=== PATIENT | female | born 1955 | race Caucasian/White ===

== ENCOUNTER → 2016-05-17 | Outpatient (CLI) | payer OTHER ==
[~2016-05-17] MED LIST: ALPR-411 PO; ASPI81TA28 PO; BETA0.053 TOP; CRS/10 PO; GABA-112 PO; GLIM2TAB2 PO; LOSA50TA54 PO; LPT40 PO; METO50TA16 PO; NTRGSL/4 UT; OMEP40CA PO; PRAS1TAB6 PO
--- NOTE | 2016-05-17 15:58 | DIAGNOSTIC IMAGING REPORT ---
TWO VIEW CHEST CLINICAL HISTORY: Emphysema. FINDINGS: PA and lateral chest radiographs are compared to study dated 06/18/2015. Correlation is made with chest CT dated 03/18/2015. The PA view is degraded by patient rotation. The cardiomediastinal silhouette is unremarkable. Coronary artery stents are suspected. There is atherosclerotic calcification of the thoracic aorta. Emphysema and chronic interstitial thickening are similar to previous. There is no airspace consolidation, pleural effusion, or pneumothorax. The skeletal structures are osteopenic. The bony thorax appears intact. Mild degenerative change is noted in the thoracic spine. IMPRESSION: Emphysema with no acute cardiopulmonary abnormality. Electronically signed by: iDpak Scott M.D. 05/17/2016 3:55 PM Dictated Date/Time: 05/17/2016 3:54 PM
[2016-05-17 17:09] LABS: BASO % 0.5 %; BASO ABS # 0.07 K/uL (0-0.2); COMPLETE YES; EOS % 2.2 %; HEMATOCRIT 46.4 % (37-47); IG% 0.2 %; LYMPH % 24.5 %; LYMPH ABS # 3.28 K/uL (1.2-3.4); MEAN CORPUSCULAR HEMOGLOBIN 30.6 pg (25-34); MEAN CORPUSCULAR HGB CONC 34.7 g/dl (32-36); MEAN PLATELET VOLUME 12.1 fL (7.4-10.4); NEUT % 68.6 %; PLATELET COUNT 247 K/uL (130-400); RED BLOOD COUNT 5.27 M/uL (4.2-5.4); WHITE BLOOD COUNT 13.38 K/uL (4.8-10.8)
[2016-05-17 17:33] LABS: ALT/SGPT 17 U/L (12-78); BLOOD UREA NITROGEN 23 mg/dl (7-18); BUN/CREATININE RATIO 15.3 (10-20); CARBON DIOXIDE 24 mmol/L (21-32); CHLORIDE 105 mmol/L (98-107); GLUCOSE 111 mg/dl (70-99); POTASSIUM 4.3 mmol/L (3.5-5.1); SODIUM 140 mmol/L (136-145)
[2016-05-17 17:44] LABS: ALB/GLOB RATIO 0.9 (0.9-2); ALKALINE PHOSPHATASE 101 U/L (45-117); AST/SGOT 18 U/L (15-37); THYROID STIMULATING HORMONE 0.777 uIu/ml (0.300-4.500)
[2016-05-18 06:35] LABS: ESTIMATED AVERAGE GLUCOSE 123 mg/dl; HA1C FLAG Normal (Normal)
== END | disposition home or self-care (01) ==
LOC: C.RADBC 15:28
PROVIDERS: ATTEND Internal Medicine Geriatric Medicine
DX: J43.9 Emphysema, unspecified (principal); I25.10 Atherosclerotic heart disease of native coronary artery without angina pectoris; E11.9 Type 2 diabetes mellitus without complications; I10 Essential (primary) hypertension; D72.829 Elevated white blood cell count, unspecified

== ENCOUNTER → 2016-06-05 | Outpatient (CLI) | payer OTHER ==
[2016-06-05 10:16] LABS: URINE APPEARANCE CLOUDY (CLEAR); URINE BILIRUBIN NEG (NEG); URINE COLOR DK YELLOW; URINE EPITHELIAL CELL AUTO >30 /lpf (0-5); URINE NITRITE POS (NEG); URINE SPECIFIC GRAVITY 1.022 (1.000-1.030); UROBILINOGEN NEG (NEG); ZZUR CULT IF INDIC CLEAN CATCH YES
[2016-06-05 10:24] LABS: MANUAL MICROSCOPIC REQUIRED? NO; REVIEW REQ? NO
[2016-06-05 14:46] LABS: URINE PROTIEN/CREAT RATIO 0.2 (0-0.2); URINE TOTAL PROTEIN 64.6 mg/dl (0-11.9)
== END | disposition home or self-care (01) ==
LOC: C.LAB 09:12
PROVIDERS: ATTEND Internal Medicine Nephrology
DX: N17.9 Acute kidney failure, unspecified (principal)

== ENCOUNTER → 2016-06-19 | Outpatient (CLI) | payer OTHER ==
[2016-06-19 11:58] LABS: BLOOD UREA NITROGEN 19 mg/dl (7-18); BUN/CREATININE RATIO 10.8 (10-20); CALCIUM 9.2 mg/dl (8.5-10.1); CARBON DIOXIDE 24 mmol/L (21-32); CHLORIDE 104 mmol/L (98-107); GLUCOSE 165 mg/dl (70-99); MAGNESIUM 2.3 mg/dl (1.8-2.4); PHOSPHORUS 2.6 mg/dl (2.5-4.9); SODIUM 138 mmol/L (136-145)
== END | disposition home or self-care (01) ==
LOC: C.LAB 10:11
PROVIDERS: ATTEND Internal Medicine Nephrology
DX: N17.9 Acute kidney failure, unspecified (principal)

== ENCOUNTER → 2016-06-26 | Outpatient (CLI) | payer OTHER ==
[2016-06-26 17:41] LABS: URINE APPEARANCE CLEAR (CLEAR); URINE BILIRUBIN NEG (NEG); URINE COLOR DK YELLOW; URINE EPITHELIAL CELL AUTO >30 /lpf (0-5); URINE NITRITE NEG (NEG); URINE SPECIFIC GRAVITY 1.021 (1.000-1.030); UROBILINOGEN NEG (NEG); ZZUR CULT IF INDIC CLEAN CATCH NO
[2016-06-26 17:42] LABS: MANUAL MICROSCOPIC REQUIRED? NO; REVIEW REQ? YES
[2016-06-26 17:51] LABS: URINE PROTIEN/CREAT RATIO 0.3 (0-0.2); URINE TOTAL PROTEIN 71.2 mg/dl (0-11.9)
== END | disposition home or self-care (01) ==
LOC: C.LAB1850 16:24
PROVIDERS: ATTEND Internal Medicine Nephrology
DX: N17.9 Acute kidney failure, unspecified (principal)

== ENCOUNTER → 2016-08-09 | Outpatient (CLI) | payer OTHER ==
[2016-08-09 17:31] LABS: BLOOD UREA NITROGEN 21 mg/dl (7-18); BUN/CREATININE RATIO 14.3 (10-20); CALCIUM 9.1 mg/dl (8.5-10.1); CARBON DIOXIDE 25 mmol/L (21-32); CHLORIDE 106 mmol/L (98-107); GLUCOSE 97 mg/dl (70-99); SODIUM 140 mmol/L (136-145)
== END | disposition home or self-care (01) ==
LOC: C.LABBFT 12:18
PROVIDERS: ATTEND Internal Medicine Nephrology
DX: N17.9 Acute kidney failure, unspecified (principal); R27.0 Ataxia, unspecified

== ENCOUNTER → 2016-08-14 | Outpatient (CLI) | payer OTHER ==
--- NOTE | 2016-08-14 14:08 | DIAGNOSTIC IMAGING REPORT ---
Brain MRI WITHOUT CONTRAST HISTORY: Ataxia. TECHNIQUE: Multiplanar multisequence MRI of the brain was performed without the use of contrast. COMPARISON STUDY: None. FINDINGS: There is no mass, hematoma, midline shift, or acute infarct. The paranasal sinuses are clear. The mastoid or cells are clear. The ventricles and sulci demonstrate mild age-related involutional changes. Scattered foci of T2 hyperintensity seen within the periventricular and subcortical white matter are nonspecific but suggestive of mild microvascular ischemic changes. The major vascular flow voids at the skull base are well-maintained. Old lacunar infarct seen within the left cerebellar hemisphere, kendra, thalami, right basal ganglia, and right temporal periventricular white matter. Small focus of susceptibility artifact within the right parietal white matter may be due to old hemorrhagic infarct. No acute hemorrhage identified. IMPRESSION: No acute intracranial abnormality. Scattered foci of T2 hyperintensity seen within the periventricular and subcortical white matter are nonspecific but favor microvascular ischemic change. Old scattered lacunar infarcts as described above. Electronically signed by: Jonathan Escamilla M.D. 08/14/2016 2:06 PM Dictated Date/Time: 08/14/2016 2:00 PM
== END | disposition home or self-care (01) ==
LOC: C.MRIBC 12:41
PROVIDERS: ATTEND Physician Assistant Medical
DX: R27.0 Ataxia, unspecified (principal)

== ENCOUNTER → 2016-10-16 | Outpatient (CLI) | payer OTHER ==
[2016-10-16 15:39] LABS: BASO % 0.3 %; BASO ABS # 0.03 K/uL (0-0.2); COMPLETE YES; EOS % 2.7 %; HEMATOCRIT 42.6 % (37-47); IG% 0.3 %; LYMPH % 27.1 %; LYMPH ABS # 3.13 K/uL (1.2-3.4); MEAN CELL VOLUME 90.1 fL (80-100); MEAN CORPUSCULAR HEMOGLOBIN 30.2 pg (25-34); MEAN CORPUSCULAR HGB CONC 33.6 g/dl (32-36); MEAN PLATELET VOLUME 11.9 fL (7.4-10.4); MONO % 4.3 %; NEUT % 65.3 %; PLATELET COUNT 198 K/uL (130-400); RED BLOOD COUNT 4.73 M/uL (4.2-5.4); WHITE BLOOD COUNT 11.56 K/uL (4.8-10.8)
[2016-10-16 16:01] LABS: ALT/SGPT 17 U/L (12-78); AST/SGOT 9 U/L (15-37); BLOOD UREA NITROGEN 28 mg/dl (7-18); BUN/CREATININE RATIO 15.5 (10-20); CALCIUM 9.1 mg/dl (8.5-10.1); CARBON DIOXIDE 27 mmol/L (21-32); CHLORIDE 110 mmol/L (98-107); GLUCOSE 159 mg/dl (70-99); POTASSIUM 3.8 mmol/L (3.5-5.1); SODIUM 145 mmol/L (136-145)
[2016-10-16 16:12] LABS: ALKALINE PHOSPHATASE 91 U/L (45-117); THYROID STIMULATING HORMONE 0.543 uIu/ml (0.300-4.500)
[2016-10-17 06:33] LABS: ESTIMATED AVERAGE GLUCOSE 117 mg/dl; HA1C FLAG Normal (Normal)
== END | disposition home or self-care (01) ==
LOC: C.LAB1850 14:26
PROVIDERS: ATTEND Internal Medicine Geriatric Medicine
DX: I12.9 Hypertensive chronic kidney disease with stage 1 through stage 4 chronic kidney disease, or unspecified chronic kidney disease (principal); R63.4 Abnormal weight loss; I67.2 Cerebral atherosclerosis; D72.829 Elevated white blood cell count, unspecified; R42 Dizziness and giddiness; N18.3 Chronic kidney disease, stage 3 (moderate); R29.898 Other symptoms and signs involving the musculoskeletal system; E11.40 Type 2 diabetes mellitus with diabetic neuropathy, unspecified

== ENCOUNTER → 2016-10-18 | Outpatient (CLI) | payer OTHER ==
[2016-10-18 18:46] LABS: CHOLESTEROL/HDL RATIO 6.8
[2016-10-23 03:43] LABS: IGA SERUM 375 mg/dL (81-463); TIS TRANS IGA 1 U/mL (<4)
== END | disposition home or self-care (01) ==
LOC: C.LABBFT 11:51
PROVIDERS: ATTEND Internal Medicine Geriatric Medicine
DX: R42 Dizziness and giddiness (principal); R63.4 Abnormal weight loss

== ENCOUNTER → 2016-10-25 | Outpatient (CLI) | payer OTHER ==
--- NOTE | 2016-10-25 14:46 | DIAGNOSTIC IMAGING REPORT ---
MRI OF THE BRAIN WITHOUT IV CONTRAST CLINICAL HISTORY: Right upper extremity weakness of 3 months duration. COMPARISON STUDY: MRI of the brain dated 08/14/2016. TECHNIQUE: MRI of the brain was performed utilizing various T1 and T2-weighted sequences in the axial, sagittal, and coronal planes. IV contrast was not administered due to low GFR. FINDINGS: Brain parenchyma: There is mild patchy subcortical and periventricular microangiopathic disease. This is similar to previous. There is no hemorrhage or mass effect. There are 2 foci of restricted diffusion identified within the left kendra measuring up to 10 mm. This is consistent with acute to subacute lacunar infarcts. No additional foci of restricted diffusion are identified. Additional chronic lacunar infarcts are identified within the right kendra, both cerebellar hemispheres, both thalami, the left internal capsule, and the right caudate head. Cowart-white matter differentiation is preserved. No extra-axial fluid collection is seen. The cerebellar tonsils are normal in configuration. Ventricles, sulci, and cisterns: Prominent secondary to involutional change. Pituitary and sella: Unremarkable. Intracranial vasculature: Normal flow voids are maintained at the skull base. Orbits: The bony orbits are grossly intact. Orbital contents are normal in appearance. Sinuses and mastoids: Clear. Calvarium: Unremarkable. Cervical cord: Partially visualized cervical spinal cord is normal in morphology and signal intensity. IMPRESSION: 1. There are 2 small foci of restricted diffusion identified within the left kendra consistent with acute to subacute lacunar infarcts. 2. No additional foci of acute ischemia are identified. There is no hemorrhage or mass effect. 3. Numerous chronic lacunar infarcts are identified and similar to previous. Electronically signed by: Dipak Scott M.D. 10/25/2016 2:44 PM Dictated Date/Time: 10/25/2016 2:40 PM
== END | disposition home or self-care (01) ==
LOC: C.MRIBC 13:23
PROVIDERS: ATTEND Internal Medicine Geriatric Medicine
DX: R29.898 Other symptoms and signs involving the musculoskeletal system (principal)

== ENCOUNTER → 2016-11-27 | Outpatient (CLI) | payer OTHER ==
[2016-11-27 17:34] LABS: URINE APPEARANCE CLOUDY (CLEAR); URINE BILIRUBIN NEG (NEG); URINE COLOR YELLOW; URINE EPITHELIAL CELL AUTO >30 /lpf (0-5); URINE NITRITE NEG (NEG); URINE PH 6.5 (4.5-7.5); URINE SPECIFIC GRAVITY 1.016 (1.000-1.030); UROBILINOGEN NEG (NEG); ZZUR CULT IF INDIC CLEAN CATCH YES
[2016-11-27 17:48] LABS: MANUAL MICROSCOPIC REQUIRED? NO; REVIEW REQ? NO
[2016-11-27 17:49] LABS: URINE PROTIEN/CREAT RATIO 0.4 (0-0.2); URINE TOTAL PROTEIN 39.9 mg/dl (0-11.9)
[2016-11-27 17:50] LABS: BLOOD UREA NITROGEN 24 mg/dl (7-18); BUN/CREATININE RATIO 14.1 (10-20); CALCIUM 8.9 mg/dl (8.5-10.1); CARBON DIOXIDE 26 mmol/L (21-32); CHLORIDE 108 mmol/L (98-107); GLUCOSE 74 mg/dl (70-99); MAGNESIUM 2.2 mg/dl (1.8-2.4); PHOSPHORUS 2.3 mg/dl (2.5-4.9); SODIUM 141 mmol/L (136-145)
== END | disposition home or self-care (01) ==
LOC: C.LAB1850 15:56
PROVIDERS: ATTEND Internal Medicine Nephrology
DX: N18.3 Chronic kidney disease, stage 3 (moderate) (principal)

== ENCOUNTER 2017-01-06 11:58 | Inpatient (IN) | payer OTHER ==
[~2017-01-06] VITALS: Ht 157.5 cm; Wt 70.2 kg
[~2017-01-06 11:58] MED LIST changes: +KETOROLAC TROMETHAMINE 30 MG/ML VIAL IV STA; -LPT40 PO; +ONDANSETRON INJ 2 MG/ML 2 ML VIAL IV STA; -PRAS1TAB6 PO; +SODIUM CHLORIDE 0.9% 1000ML 1,000 ML IV STA
[2017-01-06] MEDS ORDERED: METOPROLOL TARTRATE 1 MG/ML VIAL IV STA (12:12)
[2017-01-06 12:21] LABS: BASO % 0.3 %; BASO ABS # 0.04 K/uL (0-0.2); COMPLETE YES; EOS % 2.2 %; HEMATOCRIT 44.9 % (37-47); IG% 0.3 %; LYMPH ABS # 2.46 K/uL (1.2-3.4); MEAN CELL VOLUME 92.8 fL (80-100); MEAN CORPUSCULAR HGB CONC 33.4 g/dl (32-36); MEAN PLATELET VOLUME 11.4 fL (7.4-10.4); MONO % 4.5 %; NEUT % 73.7 %; PLATELET COUNT 180 K/uL (130-400); RED BLOOD COUNT 4.84 M/uL (4.2-5.4); WHITE BLOOD COUNT 12.93 K/uL (4.8-10.8)
--- NOTE | 2017-01-06 12:26 | DIAGNOSTIC IMAGING REPORT ---
CHEST ONE VIEW PORTABLE HISTORY: 61 years-old Female Pt c/o diffuse abd pain acute generalized abdominal pain COMPARISON: Chest radiograph 04/16/2017 TECHNIQUE: Portable upright AP view of the chest FINDINGS: Cardiac silhouette is upper limits of normal. There is atherosclerosis of the aorta. No pneumothorax, pleural effusion or focal airspace consolidation. No overt pulmonary edema. Emphysematous changes are suggested. Degenerative changes involve the bilateral shoulders. The bones are grossly intact. IMPRESSION: No acute cardiopulmonary process. The above report was generated using voice recognition software. It may contain grammatical, syntax or spelling errors. Electronically signed by: Kiran Mckeon M.D. 01/06/2017 12:24 PM Dictated Date/Time: 01/06/2017 12:23 PM
[2017-01-06] MEDS ORDERED: OPTIRAY 320 IV PRN (12:30)
--- NOTE | 2017-01-06 12:44 | EMERGENCY ROOM VISIT NOTE ---
History Report prepared by Michele: Kenia Cazares Under the Supervision of: Dr. Wade Escamilla M.D. First contact with patient: 11:58 Stated Complaint: ABDOMINAL PAIN History of Present Illness The patient is a 61 year old female who presents to the Emergency Room with complaints of constant abdominal pain beginning 3 days ago. The patient states that she has a history of heart attacks and has cardiac stents and blockages in the lower extremities. She reports that over the last 3 days she has had intermittent nausea, vomiting, and diarrhea. Source of History: patient Onset: 3 days ago Position: abdomen Timing: constant Associated Symptoms: + nausea, + vomiting, + diarrhea Review of Systems See HPI for pertinent positives & negatives. A total of 10 systems reviewed and were otherwise negative. Past Medical & Surgical Medical Problems: (1) CVA (cerebral vascular accident) (2) CVD (cardiovascular disease) (3) Diabetes mellitus (4) GERD (gastroesophageal reflux disease) (5) HTN (hypertension) (6) Myocardial infarction (7) Pain in both upper arms Surgical Problems: (1) S/P cardiac cath Family History FH: heart attack Social History Smoking Status: Current Every Day Smoker Alcohol Use: none Marital Status: Housing Status: lives with significant other Occupation Status: unemployed Current/Historical Medications Scheduled Alprazolam (Xanax), 0.5 MG PO TID Aspirin (Aspirin Ec), 81 MG PO DAILY Glimepiride (Glimepiride), 1.5 TAB PO DAILY Losartan Potassium (Cozaar), 50 MG PO DAILY Metoprolol Tartrate (Lopressor) (Lopressor), 50 MG PO BID Prasugrel Hcl (Effient), 10 MG PO DAILY Allergies Coded Allergies: No Known Allergies (Verified , 01/06/17) Physical Exam Vital Signs Date Time Temp Pulse Resp B/P (MAP) Pulse Ox O2 Delivery O2 Flow Rate FiO2 01/06/17 14:37 68 20 135/73 98 Room Air 01/06/17 14:17 64 207/75 01/06/17 14:10 98 Room Air 01/06/17 13:26 55 168/84 98 01/06/17 12:22 36.4 78 20 191/73 97 Room Air 01/06/17 12:09 72 Physical Exam GENERAL: Patient is a healthy-appearing well-nourished female HEAD: Normocephalic atraumatic EYES: Ocular movements intact pupils equal and react to light OROPHARYNX mucous membranes are moist no exudates present no erythema or edema present NECK: Supple no nuchal rigidity CHEST: Good equal expansion LUNGS: Clear and equal to auscultation CARDIAC: Normal S1 and S2 ABDOMEN: Soft nontender no guarding BACK: No CVA tenderness EXTREMITIES: No pain upon palpation normal muscle strength in all groups no clubbing cyanosis or edema. Pedal pulses are normal in the lower extremities. NEURO: Patient is following commands and answering questions appropriately. Alert and oriented x3 Cranial Nerves 2-12 grossly intact Medical Decision & Procedures ER Provider Diagnostic Interpretation: Radiology results as stated below per my review and radiologist interpretation: HEAD WITHOUT CONTRAST (CT) FINDINGS: No acute intracranial hemorrhage, midline shift, mass, large territorial ischemia or abnormal extra-axial collection. There is mild bifrontal cerebral atrophy with increased CSF space adjacent to the right frontal lobe suggesting asymmetric atrophy. Scattered areas of focal decreased attenuation involving the right thalamus and caudate nucleus suggest remote lacunar infarctions. Additionally, there are more ill-defined focal areas of low-attenuation within the anteromedial left thalamus on image 14 with focal areas of low attenuation measuring up to 1.3 cm within the central kendra. There are suggested chronic microvascular ischemic changes. The calvarium is intact. The paranasal sinuses, mastoid air cells, and middle ear cavities are clear. IMPRESSION: 1. No acute intracranial hemorrhage, midline shift or territorial ischemia. 2. Atrophy with chronic microvascular ischemic changes. Probable remote lacunar infarctions involve the right caudate nucleus and thalamus. 3. Ill-defined areas of low-attenuation within the anteromedial left thalamus and central kendra suggest age indeterminate lacunar infarctions and could be further evaluated with MRI if clinically indicated. The above report was generated using voice recognition software. It may contain grammatical, syntax or spelling errors. Electronically signed by: Kiran Mckeon M.D. 01/06/2017 1:22 PM Dictated Date/Time: 01/06/2017 1:18 PM CHEST ONE VIEW PORTABLE FINDINGS: Cardiac silhouette is upper limits of normal. There is atherosclerosis of the aorta. No pneumothorax, pleural effusion or focal airspace consolidation. No overt pulmonary edema. Emphysematous changes are suggested. Degenerative changes involve the bilateral shoulders. The bones are grossly intact. IMPRESSION: No acute cardiopulmonary process. The above report was generated using voice recognition software. It may contain grammatical, syntax or spelling errors. Electronically signed by: Kiran Mckeon M.D. 01/06/2017 12:24 PM Dictated Date/Time: 01/06/2017 12:23 PM ABD/PELVIS IV CONTRAST ONLY FINDINGS: Mild dependent bibasal atelectasis. Thin-walled cystic foci are seen involving the lung bases. There is no pneumoperitoneum identified. Coronary arterial disease is present. The liver, gallbladder, spleen, pancreas and right adrenal gland are unremarkable. There is nodular thickening of the left adrenal gland suggesting hyperplasia. Cystic lesions are noted bilaterally involving the kidneys suggesting renal sinus cysts. Minimal vascular calcifications are noted bilaterally with multifocal areas of renal parenchymal thinning. Ureters, urinary bladder, uterus and adnexa are unremarkable. Bilateral fallopian tube occlusion devices are present. There is extensive atherosclerotic plaquing of the abdominal aorta. 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 No bulky retroperitoneal adenopathy. There is no bowel obstruction. No focal bowel wall thickening. No evidence of acute appendicitis. Small fat filled periumbilical hernia is noted, diastases 1.1 cm. Mild body wall edema is noted. Severe facet arthropathy involves the lower lumbar spine. There is 4 mm anterolisthesis L4 on L5, likely on a degenerative basis. IMPRESSION: 1. No acute intra-abdominal or intrapelvic abnormality identified. 2. Bilateral renal sinus cysts. 3. 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 The above report was generated using voice recognition software. It may contain grammatical, syntax or spelling errors. Electronically signed by: Kiran Mckeon M.D. 01/06/2017 1:40 PM Dictated Date/Time: 01/06/2017 1:32 PM Laboratory Results 01/06/17 12:05 Red Blood Count 4.84, Mean Corpuscular Volume 92.8, Mean Corpuscular Hemoglobin 31.0, Mean Corpuscular Hemoglobin Concent 33.4, Mean Platelet Volume 11.4, Neutrophils (%) (Auto) 73.7, Lymphocytes (%) (Auto) 19.0, Monocytes (%) (Auto) 4.5, Eosinophils (%) (Auto) 2.2, Basophils (%) (Auto) 0.3, Neutrophils # (Auto) 9.52, Lymphocytes # (Auto) 2.46, Monocytes # (Auto) 0.58, Eosinophils # (Auto) 0.29, Basophils # (Auto) 0.04 01/06/17 12:05 01/06/17 13:37 Test 01/06/17 11:58 01/06/17 12:05 01/06/17 12:15 01/06/17 12:16 Creatine Kinase MB Ratio (0-3.0) White Blood Count 12.93 K/uL (4.8-10.8) Red Blood Count 4.84 M/uL (4.2-5.4) Hemoglobin 15.0 g/dL (12.0-16.0) Hematocrit 44.9 % (37-47) Mean Corpuscular Volume 92.8 fL (80-100) Mean Corpuscular Hemoglobin 31.0 pg (25-34) Mean Corpuscular Hemoglobin Concent 33.4 g/dl (32-36) Platelet Count 180 K/uL (130-400) Mean Platelet Volume 11.4 fL (7.4-10.4) Neutrophils (%) (Auto) 73.7 % Lymphocytes (%) (Auto) 19.0 % Monocytes (%) (Auto) 4.5 % Eosinophils (%) (Auto) 2.2 % Basophils (%) (Auto) 0.3 % Neutrophils # (Auto) 9.52 K/uL (1.4-6.5) Lymphocytes # (Auto) 2.46 K/uL (1.2-3.4) Monocytes # (Auto) 0.58 K/uL (0.11-0.59) Eosinophils # (Auto) 0.29 K/uL (0-0.5) Basophils # (Auto) 0.04 K/uL (0-0.2) RDW Standard Deviation 48.1 fL (36.4-46.3) RDW Coefficient of Variation 14.1 % (11.5-14.5) Immature Granulocyte % (Auto) 0.3 % Immature Granulocyte # (Auto) 0.04 K/uL (0.00-0.02) Est Creatinine Clear Calc Drug Dose 29.7 ml/min Estimated GFR () 34.6 Estimated GFR (Non- 29.9 BUN/Creatinine Ratio 14.0 (10-20) Calcium Level 9.2 mg/dl (8.5-10.1) Total Bilirubin 0.7 mg/dl (0.2-1) Alanine Aminotransferase (ALT/SGPT) 19 U/L (12-78) Alkaline Phosphatase 116 U/L (45-117) Creatine Kinase MB < 0.5 ng/ml (0.5-3.6) Troponin I < 0.015 ng/ml (0-0.045) Total Protein 7.9 gm/dl (6.4-8.2) Albumin 3.7 gm/dl (3.4-5.0) Lipase 448 U/L (73-393) Urine Color YELLOW Urine Appearance CLEAR (CLEAR) Urine pH 5.0 (4.5-7.5) Urine Specific [place] 1.020 (1.000-1.030) Urine Protein 1+ (NEG) Urine Glucose (UA) TRACE (NEG) Urine Ketones NEG (NEG) Urine Occult Blood TRACE (NEG) Urine Nitrite NEG (NEG) Urine Bilirubin NEG (NEG) Urine Urobilinogen NEG (NEG) Urine Leukocyte Esterase NEG (NEG) Urine WBC (Auto) 1-5 /hpf (0-5) Urine RBC (Auto) 0-4 /hpf (0-4) Urine Hyaline Casts (Auto) 1-5 /lpf (0-5) Urine Epithelial Cells (Auto) >30 /lpf (0-5) Urine Bacteria (Auto) NEG (NEG) Bedside Hemoglobin 15.6 g/dl (12.0-16.0) Bedside Hematocrit 46 % (37-47) Bedside Sodium 140 mEq/L (135-144) Bedside Potassium 4.5 mEq/L (3.3-5.0) Bedside Chloride 107 mEq/L (101-112) Bedside Total CO2 25 mEq/l (24-31) Anion Gap 13.0 mmol/L (16-25) Bedside Blood Urea Nitrogen 37 mg/dl (7-18) Bedside Creatinine 1.7 mg/dl (0.6-1.3) Bedside Glucose (other) 162 mg/dl (70-99) Bedside Ionized Calcium (Shannan) 1.15 mmol/l (1.12-1.32) Test 01/06/17 12:36 01/06/17 13:37 01/06/17 13:44 Prothrombin Time 10.4 SECONDS (9.0-12.0) Prothromb Time International Ratio 1.0 (0.9-1.1) Direct Bilirubin 0.1 mg/dl (0-0.2) Aspartate Amino Transf (AST/SGOT) 11 U/L (15-37) Total Creatine Kinase 41 U/L (26-192) Activated Partial Thromboplast Time 23.0 SECONDS (21.0-31.0) Partial Thromboplastin Ratio 0.9 Labs reviewed by ED physician. Medications Administered Medications (Trade) Dose Ordered Sig/Jakob Route Start Time Stop Time Status Last Admin Dose Admin Sodium Chloride 1,000 ml @ 999 mls/hr Q1H1M STAT IV 01/06/17 11:58 01/06/17 12:58 DC 01/06/17 12:26 999 MLS/HR Ketorolac Tromethamine (Toradol Inj) 30 mg NOW STAT IV 01/06/17 11:58 01/06/17 12:04 DC 01/06/17 11:58 30 MG Ondansetron HCl (Zofran Inj) 4 mg NOW STAT IV 01/06/17 11:58 01/06/17 12:04 DC 01/06/17 11:58 4 MG Metoprolol Tartrate (Lopressor Iv) 15 mg NOW STAT IV 01/06/17 12:12 01/06/17 12:13 DC 01/06/17 14:17 5 MG Aspirin (Aspirin Chew) 81 mg NOW STAT PO 01/06/17 13:33 01/06/17 13:43 DC 01/06/17 13:45 81 MG Lorazepam (Ativan Inj) 1 mg NOW STAT IV 01/06/17 14:03 01/06/17 14:05 DC 01/06/17 14:50 1 MG Sodium Chloride 1,000 ml @ 100 mls/hr Q10H IV 01/06/17 15:04 02/05/17 15:03 01/06/17 16:31 100 MLS/HR ECG Indication: abdominal pain Rate (beats per minute): 63 Rhythm: normal sinus Findings: no acute ischemic change, no ectopy ED Course 1158: Past medical records reviewed. The patient was evaluated in room B7. A complete history and physical examination was performed. 1158: Zofran Inj 4mg IV, Toradol Inj 30mg IV, Sodium Chloride 1000 ml @ 999 mls/ hr IV. 1212: Lopressor IV 15mg IV. 1333: Aspirin 81mg PO. 1345: I discussed the patient's case with Dr. Silver, he has agreed to evaluate the patient for further management and care. 1346: Upon reexamination the patient is doing well. I discussed results and treatment plan with the patient. She verbalizes agreement and understanding. I [place] Silver [place] [facility] [facility] The patient will be evaluated for further management. 0900: Prasugrel 10mg PO. Medical Decision Differential diagnosis: Etiologies such as appendicitis, diverticulitis, PUD, biliary pathology, UTI, pancreatitis, obstruction, mesenteric ischemia, aortic pathology, infections, inflammatory bowel disease, renal colic, as well as others were entertained. This is a 61-year-old female who presents emergency department complaining of severe nausea and vomiting. This is been ongoing for the patient for the past 3 days and she has not been able to hold down her medications. Upon arrival to the emergency department the patient is extremely hypertensive and based on her complaint she was sent for CAT scan of the head along with abdomen and pelvis. I'm concerned that the patient has new strokes on the CAT scan of her head and so discuss the case with the hospitalist service. In the meantime the patient was given normal saline bolus Toradol and Zofran. She was then able to tolerate having aspirin and Effient. Medication Reconcilliation Current Medication List: was personally reviewed by me Blood Pressure Screening Patient's blood pressure: Elevated blood pressure Blood pressure disposition: Referred to PCP Consults Time Called: 1341 Consulting Physician: Dr. Silver [place] [facility] [place] Returned Call: [phone] I discussed the patient's case with Dr. Silver, he has agreed to evaluate the patient for further management and care. Impression Primary Impression: Intractable vomiting Additional Impression: HTN (hypertension) Scribe Attestation The scribe's documentation has been prepared under my direction and personally reviewed by me in its entirety. I confirm that the note above accurately reflects all work, treatment, procedures, and medical decision making performed by me. Departure Information Dispostion Being Evaluated By Hospitalist Referrals Edi Castellanos M.D. (PCP) Problem Qualifiers Primary Impression: Intractable vomiting Vomiting type: unspecified Nausea presence: with nausea Qualified Codes: R11.2 - Nausea with vomiting, unspecified Additional Impression: HTN (hypertension) Hypertension type: unspecified Qualified Codes: I10 - Essential (primary) hypertension
[2017-01-06] MEDS ORDERED: PRAS1TAB6 PO (12:46)
[2017-01-06 12:50] LABS: URINE APPEARANCE CLEAR (CLEAR); URINE BILIRUBIN NEG (NEG); URINE COLOR YELLOW; URINE EPITHELIAL CELL AUTO >30 /lpf (0-5); URINE NITRITE NEG (NEG); UROBILINOGEN NEG (NEG); ZZURINE CULT IF INDIC CATH NO
[2017-01-06 12:51] LABS: ALKALINE PHOSPHATASE 116 U/L (45-117); ALT/SGPT 19 U/L (12-78); BLOOD UREA NITROGEN 25 mg/dl (7-18); CALCIUM 9.2 mg/dl (8.5-10.1); CARBON DIOXIDE 24 mmol/L (21-32); CHLORIDE 109 mmol/L (98-107); GLUCOSE 155 mg/dl (70-99); SODIUM 139 mmol/L (136-145)
[2017-01-06 12:53] LABS: MANUAL MICROSCOPIC REQUIRED? NO; REVIEW REQ? NO
[2017-01-06 12:58] LABS: PROTHROMBIN TIME (PATIENT) 10.4 SECONDS (9.0-12.0)
--- NOTE | 2017-01-06 13:24 | DIAGNOSTIC IMAGING REPORT ---
HEAD WITHOUT CONTRAST (CT) CLINICAL HISTORY: 61 years-old Female with Pt c/o HTN, emesis. Acute headache with hypertension and emesis. TECHNIQUE: Multiple axial CT images of the head were obtained without contrast. A dose lowering technique was utilized adhering to the principles of ALARA. COMPARISON: None. FINDINGS: No acute intracranial hemorrhage, midline shift, mass, large territorial ischemia or abnormal extra-axial collection. There is mild bifrontal cerebral atrophy with increased CSF space adjacent to the right frontal lobe suggesting asymmetric atrophy. Scattered areas of focal decreased attenuation involving the right thalamus and caudate nucleus suggest remote lacunar infarctions. Additionally, there are more ill-defined focal areas of low-attenuation within the anteromedial left thalamus on image 14 with focal areas of low attenuation measuring up to 1.3 cm within the central kendra. There are suggested chronic microvascular ischemic changes. The calvarium is intact. The paranasal sinuses, mastoid air cells, and middle ear cavities are clear. IMPRESSION: 1. No acute intracranial hemorrhage, midline shift or territorial ischemia. 2. Atrophy with chronic microvascular ischemic changes. Probable remote lacunar infarctions involve the right caudate nucleus and thalamus. 3. Ill-defined areas of low-attenuation within the anteromedial left thalamus and central kendra suggest age indeterminate lacunar infarctions and could be further evaluated with MRI if clinically indicated. The above report was generated using voice recognition software. It may contain grammatical, syntax or spelling errors. Electronically signed by: Kirna Mckeon M.D. 01/06/2017 1:22 PM Dictated Date/Time: 01/06/2017 1:18 PM
[2017-01-06] MEDS ORDERED: ASPIRIN 81 MG CHEW PO STA (13:33)
--- NOTE | 2017-01-06 13:41 | DIAGNOSTIC IMAGING REPORT ---
ABD/PELVIS IV CONTRAST ONLY HISTORY: 61 years-old Female Pt c/o diffuse abd pain acute generalized abdominal pain COMPARISON: CTA 03/18/2015 TECHNIQUE: Multiple axial CT images of the abdomen and pelvis were obtained following the intravenous administration of 79 mL Optiray 320. A dose lowering technique was used consistent with the principals of IJEOMA. FINDINGS: Mild dependent bibasal atelectasis. Thin-walled cystic foci are seen involving the lung bases. There is no pneumoperitoneum identified. Coronary arterial disease is present. The liver, gallbladder, spleen, pancreas and right adrenal gland are unremarkable. There is nodular thickening of the left adrenal gland suggesting hyperplasia. Cystic lesions are noted bilaterally involving the kidneys suggesting renal sinus cysts. Minimal vascular calcifications are noted bilaterally with multifocal areas of renal parenchymal thinning. Ureters, urinary bladder, uterus and adnexa are unremarkable. Bilateral fallopian tube occlusion devices are present. There is extensive atherosclerotic plaquing of the abdominal aorta. 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 No bulky retroperitoneal adenopathy. There is no bowel obstruction. No focal bowel wall thickening. No evidence of acute appendicitis. Small fat filled periumbilical hernia is noted, diastases 1.1 cm. Mild body wall edema is noted. Severe facet arthropathy involves the lower lumbar spine. There is 4 mm anterolisthesis L4 on L5, likely on a degenerative basis. IMPRESSION: 1. No acute intra-abdominal or intrapelvic abnormality identified. 2. Bilateral renal sinus cysts. 3. 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 The above report was generated using voice recognition software. It may contain grammatical, syntax or spelling errors. Electronically signed by: Kiran Mckeon M.D. 01/06/2017 1:40 PM Dictated Date/Time: 01/06/2017 1:32 PM
[2017-01-06 14:01] LABS: ISTAT CREATININE 1.7 mg/dl (0.6-1.3); ISTAT HEMOGLOBIN 15.6 g/dl (12.0-16.0); ISTAT IONIZED CALCIUM 1.15 mmol/l (1.12-1.32)
[2017-01-06] MEDS ORDERED: LORAZEPAM 2 MG/ML 1 ML VIAL IV STA (14:03)
[2017-01-06 14:08] LABS: POTASSIUM 4.3 mmol/L (3.5-5.1)
[2017-01-06 14:10] VITALS: O2SAT 98; Ht 157.5 cm; Wt 70.2 kg
[2017-01-06 14:16] LABS: PARTIAL THROMBOPLASTIN RATIO 0.9
[2017-01-06] MEDS ORDERED: PHARMACIST DISCHARGE MED REC CONSULT PRN (15:15)
[2017-01-06] MEDS ORDERED: METOPROLOL TARTRATE 1 MG/ML VIAL IV PRN (15:15)
[2017-01-06] MEDS ORDERED: HydrALAZINE HCL 20 MG/ML VIAL IV. PRN (15:15)
[2017-01-06] MEDS ORDERED: ACETAMINOPHEN 325 MG TAB PO PRN (15:15)
--- NOTE | 2017-01-06 15:56 | DIAGNOSTIC IMAGING REPORT ---
MRA HEAD WITHOUT CONTRAST HISTORY: 61 years-old Female Pt c/o CVA acute hypertension with emesis and headache. COMPARISON: CT head 01/06/2017 TECHNIQUE: MR angiography of the head was obtained without contrast. FINDINGS: The bilateral internal carotid arteries, A1 segments and M1 segments are patent. The anterior communicating artery appears normal. Mild luminal narrowing involves the cavernous portions of the ICAs bilaterally suggesting underlying atherosclerotic vascular disease. The bilateral distal vertebral arteries are patent and form a normal and patent appearing basilar artery. The bilateral P1 segments are patent. There is no high-grade stenosis, proximal branch occlusion or aneurysm identified. IMPRESSION: No high-grade stenosis, proximal branch occlusion or aneurysm. The above report was generated using voice recognition software. It may contain grammatical, syntax or spelling errors. Electronically signed by: Kiran Mckeon M.D. 01/06/2017 3:55 PM Dictated Date/Time: 01/06/2017 3:51 PM
[2017-01-06 16:00] VITALS: O2SAT 98
--- NOTE | 2017-01-06 16:03 | DIAGNOSTIC IMAGING REPORT ---
BRAIN WITHOUT CONTRAST HISTORY: 61 years-old Female Pt c/o CVA acute headache with hypertension and emesis. Follow-up study. COMPARISON: CT head of same day, MRA of the head of same day, MRI brain 10/25/2016 TECHNIQUE: Multiplanar multisequence MRI of the brain was obtained without contrast. FINDINGS: 2 mm focus of increased signal on the diffusion series and increased signal on the ADC map with increased T2/FLAIR signal is seen involving the left putamen as seen on image 14 of the axial series image 13 of the coronal series suggesting subacute infarction. No additional areas of restricted diffusion are identified. No acute intracranial hemorrhage, midline shift or abnormal extra-axial collections. No hydrocephalus or intracranial mass. Atrophy with chronic microvascular ischemic changes and multiple remote basal ganglia and brainstem remote lacunar infarctions are redemonstrated. Atrophy is again most pronounced within the frontal lobes. Mastoid air cells and paranasal sinuses are generally clear. IMPRESSION: 1. Small subacute lacunar infarction involves the left putamen. No large territorial ischemia, significant edema or mass effect. No hemorrhage. 2. Redemonstration of atrophy with chronic microvascular ischemic changes and multiple remote lacunar infarctions. The above report was generated using voice recognition software. It may contain grammatical, syntax or spelling errors. Electronically signed by: Kiran Mckeon M.D. 01/06/2017 4:02 PM Dictated Date/Time: 01/06/2017 3:56 PM
[2017-01-06 16:11] VITALS: BP 149/66; PULSE 72; TEMP 36.7; O2SAT 95
--- NOTE | 2017-01-06 16:25 | DIAGNOSTIC IMAGING REPORT ---
MRA NECK WITHOUT CONTRAST HISTORY: 61 years-old Female Pt c/o CVA acute weakness with dizziness and vomiting. Concern for acute stroke. Decreased GFR. COMPARISON: MRI of the brain of same day. TECHNIQUE: MRA of the neck was obtained with 3-D [id number] sequencing and MIP reformats. FINDINGS: The aortic arch is not imaged on the axial 3-D [id number] images. The imaged bilateral common and internal carotid arteries are widely patent. The vertebral arteries appear to be codominant and patent. The basilar artery is not imaged on the axial 3-D [id number] sequence. The basilar artery does however appear to be normal and patent on the coronal MIP images. No high-grade stenosis, proximal branch occlusion or aneurysm identified. Chronic lacunar infarctions are incidentally noted within the kendra. IMPRESSION: 1. No high-grade stenosis, proximal branch occlusion or aneurysm identified identified. 2. Remote appearing lacunar infarctions of the kendra are incidentally noted. Please refer to MRI of the brain of same day for further details. The above report was generated using voice recognition software. It may contain grammatical, syntax or spelling errors. Electronically signed by: Kiran Mckeon M.D. 01/06/2017 4:24 PM Dictated Date/Time: 01/06/2017 4:19 PM
[2017-01-06] MEDS: SODIUM CHLORIDE 0.9% 1000ML 1,000 ML IV SCH (16:31)
--- NOTE | 2017-01-06 17:25 | History and Physical ---
History & Physical Date & Time of Service: Jan 06, 2017 at 17:06 Chief Complaint: Cva, Cvd Primary Care Physician: Edi Castellanos M.D. History of Present Illness Source: patient, family The patient is a 61-year-old female who presents to the emergency department with complaint of fatigue, nausea, abdominal discomfort, diarrhea over the last 3 days, and family reports she was in addition especially generally weak this morning when they tried to get her up out of bed. She has not had any sick exposures that they are aware of, has not been on any antibiotics, and has not had any recent travels. She has had a history of previous strokes, and unfortunately, she continues to smoke tobacco Past Medical/Surgical History Medical Problems: (1) Diabetes mellitus Status: Chronic (2) GERD (gastroesophageal reflux disease) Status: Chronic (3) HTN (hypertension) Status: Chronic (4) Myocardial infarction Status: Resolved Family History FH: heart attack Social History Smoking Status: Current Every Day Smoker Smokeless Tobacco Use: No Alcohol Use: none Drug Use: none Marital Status: Housing status: lives with family Occupational Status: unemployed Immunizations History of Influenza Vaccine: No History of Tetanus Vaccine?: No History of Pneumococcal: No History of Hepatitis B Vaccine: No Multi-Drug Resistant Organisms History of MDRO: No Allergies Coded Allergies: No Known Allergies (Verified , 01/06/17) Home Medications Scheduled Alprazolam (Xanax), 0.5 MG PO TID Aspirin (Aspirin Ec), 81 MG PO DAILY Glimepiride (Glimepiride), 1.5 TAB PO DAILY Losartan Potassium (Cozaar), 50 MG PO DAILY Metoprolol Tartrate (Lopressor) (Lopressor), 50 MG PO BID Prasugrel Hcl (Effient), 10 MG PO DAILY Review of Systems The patient denies chest pain, palpitations, shortness of breath, cough, lower extremity swelling, vision change, hearing change, sore throat, fevers, chills, sweats, blood in urine or stool, dysuria, urinary frequency or urgency, lightheadedness, dizziness, headache, rash, abnormal bruising or bleeding, focal weakness, numbness or tingling in arms or legs, generalized arthralgias or myalgias, back or neck pain, night sweats, or allergy symptoms. The review of systems is otherwise negative other than for that already noted above, and at least 10 systems have been reviewed. Physical Exam Vital Signs Date Time Temp Pulse Resp B/P (MAP) Pulse Ox O2 Delivery O2 Flow Rate FiO2 01/06/17 16:11 36.7 72 22 149/66 (93) 95 Room Air 01/06/17 15:32 36.4 68 20 135/73 98 01/06/17 14:37 68 20 135/73 98 Room Air 01/06/17 14:17 64 207/75 01/06/17 14:10 98 Room Air 01/06/17 13:26 55 168/84 98 01/06/17 12:22 36.4 78 20 191/73 97 Room Air 01/06/17 12:09 72 The patient is awake, alert and oriented 3, looks chronically ill, normocephalic and atraumatic, lying in bed and in no acute distress. HEENT--PERRL, EOMI, mucous membranes and oropharynx dry. Neck--supple, no JVD or bruits, thyroid normal, trachea midline, no adenopathy. Heart--normal S1 and S2, no extra beats, no murmurs, rubs or gallops. Lungs--clear bilaterally, but overall decreased throughout, no respiratory distress, no accessory muscle use. Abdomen--normal bowel sounds and soft, nontender and nondistended, no hernias or masses, no organomegaly. Extremities--no cyanosis, clubbing or edema. There are good distal pulses b/l. Dermatologic--normal skin turgor, normal color, warm and dry, no abnormal lymph nodes, no rash. Neurologic--cranial nerves II through XII grossly intact. Rheumatologic--normal range of motion, nontender, muscles and joints. Psychiatric--normal affect. Diagnostics Laboratory Results Results Past 24 Hours Test 01/06/17 11:58 01/06/17 12:05 01/06/17 12:15 01/06/17 12:16 Range/Units Creatine Kinase MB Ratio 0-3.0 White Blood Count 12.93 4.8-10.8 K/uL Red Blood Count 4.84 4.2-5.4 M/uL Hemoglobin 15.0 12.0-16.0 g/dL Hematocrit 44.9 37-47 % Mean Corpuscular Volume 92.8 80-100 fL Mean Corpuscular Hemoglobin 31.0 25-34 pg Mean Corpuscular Hemoglobin Concent 33.4 32-36 g/dl Platelet Count 180 130-400 K/uL Mean Platelet Volume 11.4 7.4-10.4 fL Neutrophils (%) (Auto) 73.7 % Lymphocytes (%) (Auto) 19.0 % Monocytes (%) (Auto) 4.5 % Eosinophils (%) (Auto) 2.2 % Basophils (%) (Auto) 0.3 % Neutrophils # (Auto) 9.52 1.4-6.5 K/uL Lymphocytes # (Auto) 2.46 1.2-3.4 K/uL Monocytes # (Auto) 0.58 0.11-0.59 K/uL Eosinophils # (Auto) 0.29 0-0.5 K/uL Basophils # (Auto) 0.04 0-0.2 K/uL RDW Standard Deviation 48.1 36.4-46.3 fL RDW Coefficient of Variation 14.1 11.5-14.5 % Immature Granulocyte % (Auto) 0.3 % Immature Granulocyte # (Auto) 0.04 0.00-0.02 K/uL Sodium Level 139 136-145 mmol/L Potassium Level 3.5-5.1 mmol/L Chloride Level 109 98-107 mmol/L Carbon Dioxide Level 24 21-32 mmol/L Anion Gap 6.0 13.0 16-25 mmol/L Blood Urea Nitrogen 25 7-18 mg/dl Creatinine 1.80 0.60-1.20 mg/dl Est Creatinine Clear Calc Drug Dose 29.7 ml/min Estimated GFR () 34.6 Estimated GFR (Non- 29.9 BUN/Creatinine Ratio 14.0 10-20 Random Glucose 155 70-99 mg/dl Calcium Level 9.2 8.5-10.1 mg/dl Total Bilirubin 0.7 0.2-1 mg/dl Direct Bilirubin 0-0.2 mg/dl Aspartate Amino Transf (AST/SGOT) 15-37 U/L Alanine Aminotransferase (ALT/SGPT) 19 12-78 U/L Alkaline Phosphatase 116 45-117 U/L Total Creatine Kinase 26-192 U/L Creatine Kinase MB < 0.5 0.5-3.6 ng/ml Troponin I < 0.015 0-0.045 ng/ml Total Protein 7.9 6.4-8.2 gm/dl Albumin 3.7 3.4-5.0 gm/dl Lipase 448 73-393 U/L Urine Color YELLOW Urine Appearance CLEAR CLEAR Urine pH 5.0 4.5-7.5 Urine Specific [place] 1.020 1.000-1.030 Urine Protein 1+ NEG Urine Glucose (UA) TRACE NEG Urine Ketones NEG NEG Urine Occult Blood TRACE NEG Urine Nitrite NEG NEG Urine Bilirubin NEG NEG Urine Urobilinogen NEG NEG Urine Leukocyte Esterase NEG NEG Urine WBC (Auto) 1-5 0-5 /hpf Urine RBC (Auto) 0-4 0-4 /hpf Urine Hyaline Casts (Auto) 1-5 0-5 /lpf Urine Epithelial Cells (Auto) >30 0-5 /lpf Urine Bacteria (Auto) NEG NEG Bedside Hemoglobin 15.6 12.0-16.0 g/dl Bedside Hematocrit 46 37-47 % Bedside Sodium 140 135-144 mEq/L Bedside Potassium 4.5 3.3-5.0 mEq/L Bedside Chloride 107 101-112 mEq/L Bedside Total CO2 25 24-31 mEq/l Bedside Blood Urea Nitrogen 37 7-18 mg/dl Bedside Creatinine 1.7 0.6-1.3 mg/dl Bedside Glucose (other) 162 70-99 mg/dl Bedside Ionized Calcium (Shannan) 1.15 1.12-1.32 mmol/l Test 01/06/17 12:36 01/06/17 13:37 01/06/17 13:44 Range/Units Prothrombin Time 10.4 9.0-12.0 SECONDS Prothromb Time International Ratio 1.0 0.9-1.1 Potassium Level 4.3 3.5-5.1 mmol/L Direct Bilirubin 0.1 0-0.2 mg/dl Aspartate Amino Transf (AST/SGOT) 11 15-37 U/L Total Creatine Kinase 41 26-192 U/L Activated Partial Thromboplast Time 23.0 21.0-31.0 SECONDS Partial Thromboplastin Ratio 0.9 Microbiology Results 01/06/17 C.difficile Toxin B Gene (PCR), Ordered Pending 01/06/17 Shiga Toxin Test, Ordered Pending 01/06/17 Stool Culture, Ordered Pending Diagnostic Radiology Patient Name: MATTIE BENJAMIN Unit Number: [id number] Dictated: 01/06/171222 Transcribed: 01/06/171222 [facility] Printed Date/Time: [~ rep prt dt]/[~ rep prt tm] [~ rep ct labl] - [~ rep ct ivnm] [facility] [place] [address] Dictated: 01/06/171222 Transcribed: 01/06/171222 [facility] Printed Date/Time: [~ rep prt dt]/[~ rep prt tm] [~ rep ct labl] - [~ rep ct ivnm] CHEST ONE VIEW PORTABLE HISTORY: 61 years-old Female Pt c/o diffuse abd pain acute generalized abdominal pain COMPARISON: Chest radiograph 04/16/2017 TECHNIQUE: Portable upright AP view of the chest FINDINGS: Cardiac silhouette is upper limits of normal. There is atherosclerosis of the aorta. No pneumothorax, pleural effusion or focal airspace consolidation. No overt pulmonary edema. Emphysematous changes are suggested. Degenerative changes involve the bilateral shoulders. The bones are grossly intact. IMPRESSION: No acute cardiopulmonary process. The above report was generated using voice recognition software. It may contain grammatical, syntax or spelling errors. Electronically signed by: Kiran Mckeon M.D. 01/06/2017 12:24 PM Dictated Date/Time: 01/06/2017 12:23 PM The status of this report is Signed. Draft = Not yet reviewed or approved by Radiologist. Signed = Reviewed and approved by Radiologist. <AttendingPhy></AttendingPhy> <FamilyPhy>Edi Castellanos M.D.</FamilyPhy> < PrimaryPhy>Edi Castellanos M.D.</PrimaryPhy> <UnitNumber>[id number]</UnitNumber > <VisitNumber>[id number]</VisitNumber> <PatientName>MATTIE BENJAMIN</ PatientName> <DateOfBirth>1955</DateOfBirth> <Location>[facility]</Location> < ServiceDate>01/06/17</ServiceDate> <MNE>ESINDI</MNE> <OrderingPhy>Wade Escamilla MD</OrderingPhy> <OrderingPhyMNE>f rep ord dr mne</OrderingPhyMNE> < DictatingPhyMNE>f rep dict dr bentley</DictatingPhyMNE> <CCListMNE>f rep ct mne</ CCListMNE> <AdmittingPhyMNE>f pt admit dr bentley</AdmittingPhyMNE> <AttendingPhyMNE >f pt attend dr bentley</AttendingPhyMNE> <ConsultingPhyMNE>f pt consult dr bentley</ConsultingPhyMNE> <FamilyPhyMNE>f pt fam dr bentley</FamilyPhyMNE> <OtherPhyMNE>f pt other dr bentley</OtherPhyMNE> < PrimaryPhyMNE>f pt prim care dr bentley</PrimaryPhyMNE> <ReferringPhyMNE>f pt referring dr bentley</ReferringPhyMNE> Patient Name: MATTIE BENJAMIN Unit Number: [id number] Dictated: 01/06/171331 Transcribed: 01/06/171331 [facility] Printed Date/Time: [~ rep prt dt]/[~ rep prt tm] [~ rep ct labl] - [~ rep ct ivnm] [facility] [place] [address] Dictated: 01/06/171331 Transcribed: 01/06/171331 JR Printed Date/Time: [~ rep prt dt]/[~ rep prt tm] [~ rep ct labl] - [~ rep ct ivnm] [~ rep ct add3]] ABD/PELVIS IV CONTRAST ONLY HISTORY: 61 years-old Female Pt c/o diffuse abd pain acute generalized abdominal pain COMPARISON: CTA 03/18/2015 TECHNIQUE: Multiple axial CT images of the abdomen and pelvis were obtained following the intravenous administration of 79 mL Optiray 320. A dose lowering technique was used consistent with the principals of IJEOMA. FINDINGS: Mild dependent bibasal atelectasis. Thin-walled cystic foci are seen involving the lung bases. There is no pneumoperitoneum identified. Coronary arterial disease is present. The liver, gallbladder, spleen, pancreas and right adrenal gland are unremarkable. There is nodular thickening of the left adrenal gland suggesting hyperplasia. Cystic lesions are noted bilaterally involving the kidneys suggesting renal sinus cysts. Minimal vascular calcifications are noted bilaterally with multifocal areas of renal parenchymal thinning. Ureters, urinary bladder, uterus and adnexa are unremarkable. Bilateral fallopian tube occlusion devices are present. There is extensive atherosclerotic plaquing of the abdominal aorta. 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 No bulky retroperitoneal adenopathy. There is no bowel obstruction. No focal bowel wall thickening. No evidence of acute appendicitis. Small fat filled periumbilical hernia is noted, diastases 1.1 cm. Mild body wall edema is noted. Severe facet arthropathy involves the lower lumbar spine. There is 4 mm anterolisthesis L4 on L5, likely on a degenerative basis. IMPRESSION: 1. No acute intra-abdominal or intrapelvic abnormality identified. 2. Bilateral renal sinus cysts. 3. 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 The above report was generated using voice recognition software. It may contain grammatical, syntax or spelling errors. Electronically signed by: Kiran Mckeon M.D. 01/06/2017 1:40 PM Dictated Date/Time: 01/06/2017 1:32 PM The status of this report is Signed. Draft = Not yet reviewed or approved by Radiologist. Signed = Reviewed and approved by Radiologist. <AttendingPhy></AttendingPhy> <FamilyPhy>Edi Castellanos M.D.</FamilyPhy> < PrimaryPhy>Edi Castellanos M.D.</PrimaryPhy> <UnitNumber>[id number]</UnitNumber > <VisitNumber>[id number]</VisitNumber> <PatientName>MATTIE BENJAMIN</ PatientName> <DateOfBirth>1955</DateOfBirth> <Location>[facility]</Location> < ServiceDate>01/06/17</ServiceDate> <MNE>ESINDI</MNE> <OrderingPhy>Wade Escamilla MD</OrderingPhy> <OrderingPhyMNE>f rep ord dr bentley</OrderingPhyMNE> < DictatingPhyMNE>f rep dict dr bentley</DictatingPhyMNE> <CCListMNE>f rep ct mne</ CCListMNE> <AdmittingPhyMNE>f pt admit dr bentley</AdmittingPhyMNE> <AttendingPhyMNE >f pt attend dr bentley</AttendingPhyMNE> <ConsultingPhyMNE>f pt consult dr bentley</ConsultingPhyMNE> <FamilyPhyMNE>f pt fam dr bentley</FamilyPhyMNE> <OtherPhyMNE>f pt other dr bentley</OtherPhyMNE> < PrimaryPhyMNE>f pt prim care dr bentley</PrimaryPhyMNE> <ReferringPhyMNE>f pt referring dr bentley</ReferringPhyMNE> Patient Name: MATTIE BENJAMIN Unit Number: [id number] Dictated: 01/06/171317 Transcribed: 01/06/171317 [facility] Printed Date/Time: [~ rep prt dt]/[~ rep prt tm] [~ rep ct labl] - [~ rep ct ivnm] [facility] [place] [address] Dictated: 01/06/171317 Transcribed: 01/06/171317 [facility] Printed Date/Time: [~ rep prt dt]/[~ rep prt tm] [~ rep ct labl] - [~ rep ct ivnm] [~ rep ct add3]] HEAD WITHOUT CONTRAST (CT) CLINICAL HISTORY: 61 years-old Female with Pt c/o HTN, emesis. Acute headache with hypertension and emesis. TECHNIQUE: Multiple axial CT images of the head were obtained without contrast. A dose lowering technique was utilized adhering to the principles of ALARA. COMPARISON: None. FINDINGS: No acute intracranial hemorrhage, midline shift, mass, large territorial ischemia or abnormal extra-axial collection. There is mild bifrontal cerebral atrophy with increased CSF space adjacent to the right frontal lobe suggesting asymmetric atrophy. Scattered areas of focal decreased attenuation involving the right thalamus and caudate nucleus suggest remote lacunar infarctions. Additionally, there are more ill-defined focal areas of low-attenuation within the anteromedial left thalamus on image 14 with focal areas of low attenuation measuring up to 1.3 cm within the central kendra. There are suggested chronic microvascular ischemic changes. The calvarium is intact. The paranasal sinuses, mastoid air cells, and middle ear cavities are clear. IMPRESSION: 1. No acute intracranial hemorrhage, midline shift or territorial ischemia. 2. Atrophy with chronic microvascular ischemic changes. Probable remote lacunar infarctions involve the right caudate nucleus and thalamus. 3. Ill-defined areas of low-attenuation within the anteromedial left thalamus and central kendra suggest age indeterminate lacunar infarctions and could be further evaluated with MRI if clinically indicated. The above report was generated using voice recognition software. It may contain grammatical, syntax or spelling errors. Electronically signed by: Kiran Mckeon M.D. 01/06/2017 1:22 PM Dictated Date/Time: 01/06/2017 1:18 PM The status of this report is Signed. Draft = Not yet reviewed or approved by Radiologist. Signed = Reviewed and approved by Radiologist. <AttendingPhy></AttendingPhy> <FamilyPhy>Edi Castellanos M.D.</FamilyPhy> < PrimaryPhy>Edi Castellanos M.D.</PrimaryPhy> <UnitNumber>[id number]</UnitNumber > <VisitNumber>[id number]</VisitNumber> <PatientName>MATTIE BENJAMIN</ PatientName> <DateOfBirth>1955</DateOfBirth> <Location>[facility]</Location> < ServiceDate>01/06/17</ServiceDate> <MNE>ESINDI</MNE> <OrderingPhy>Wade Escamilla MD</OrderingPhy> <OrderingPhyMNE>f rep ord dr bentley</OrderingPhyMNE> < DictatingPhyMNE>f rep dict dr bentley</DictatingPhyMNE> <CCListMNE>f rep ct sheree</ CCListMNE> <AdmittingPhyMNE>f pt admit dr bentley</AdmittingPhyMNE> <AttendingPhyMNE >f pt attend dr bentley</AttendingPhyMNE> <ConsultingPhyMNE>f pt consult dr bentley</ConsultingPhyMNE> <FamilyPhyMNE>f pt fam dr bentley</FamilyPhyMNE> <OtherPhyMNE>f pt other dr bentley</OtherPhyMNE> < PrimaryPhyMNE>f pt prim care dr bentley</PrimaryPhyMNE> <ReferringPhyMNE>f pt referring dr bentley</ReferringPhyMNE> Patient Name: MATTIE BENJAMIN Unit Number: [id number] Dictated: 01/06/171550 Transcribed: 01/06/171550 [facility] Printed Date/Time: [~ rep prt dt]/[~ rep prt tm] [~ rep ct labl] - [~ rep ct ivnm] [facility] Radiology Department [place], [place] [id number] Dictated: 01/06/171550 Transcribed: 01/06/171550 [facility] Printed Date/Time: [~ rep prt dt]/[~ rep prt tm] [~ rep ct labl] - [~ rep ct ivnm] [~ rep ct add3]] MRA HEAD WITHOUT CONTRAST HISTORY: 61 years-old Female Pt c/o CVA acute hypertension with emesis and headache. COMPARISON: CT head 01/06/2017 TECHNIQUE: MR angiography of the head was obtained without contrast. FINDINGS: The bilateral internal carotid arteries, A1 segments and M1 segments are patent. The anterior communicating artery appears normal. Mild luminal narrowing involves the cavernous portions of the ICAs bilaterally suggesting underlying atherosclerotic vascular disease. The bilateral distal vertebral arteries are patent and form a normal and patent appearing basilar artery. The bilateral P1 segments are patent. There is no high-grade stenosis, proximal branch occlusion or aneurysm identified. IMPRESSION: No high-grade stenosis, proximal branch occlusion or aneurysm. The above report was generated using voice recognition software. It may contain grammatical, syntax or spelling errors. Electronically signed by: Kiran Mckeon M.D. 01/06/2017 3:55 PM Dictated Date/Time: 01/06/2017 3:51 PM The status of this report is Signed. Draft = Not yet reviewed or approved by Radiologist. Signed = Reviewed and approved by Radiologist. <AttendingPhy>Selvin Silver M.D.</AttendingPhy> <FamilyPhy>Edi Castellanos M.D.</FamilyPhy> <PrimaryPhy>Edi Castellanos M.D.</PrimaryPhy> <UnitNumber> [id number]</UnitNumber> <VisitNumber>[id number]</VisitNumber> <PatientName> MATTIE BENJAMIN</PatientName> <DateOfBirth>1955</DateOfBirth> < Location>[facility]</Location> <ServiceDate>01/06/17</ServiceDate> <MNE>ESINDI</MNE> < OrderingPhy>Wade Escamilla MD</OrderingPhy> <OrderingPhyMNE>f rep ord dr bentley< /OrderingPhyMNE> <DictatingPhyMNE>f rep dict dr bentley</DictatingPhyMNE> <CCListMNE >f rep ct mne</CCListMNE> <AdmittingPhyMNE>f pt admit dr bentley</AdmittingPhyMNE> < AttendingPhyMNE>f pt attend dr bentley</AttendingPhyMNE> <ConsultingPhyMNE>f pt consult dr bentley</ConsultingPhyMNE> <FamilyPhyMNE>f pt fam dr bentley</FamilyPhyMNE> <OtherPhyMNE>f pt other dr bentley</OtherPhyMNE> < PrimaryPhyMNE>f pt prim care dr bentley</PrimaryPhyMNE> <ReferringPhyMNE>f pt referring dr bentley</ReferringPhyMNE> Patient Name: MATTIE BENJAMIN Unit Number: [id number] Dictated: 01/06/171618 Transcribed: 01/06/171618 [facility] Printed Date/Time: [~ rep prt dt]/[~ rep prt tm] [~ rep ct labl] - [~ rep ct ivnm] [facility] [place]iology [place] [address] Dictated: 01/06/171618 Transcribed: 01/06/171618 [facility] Printed Date/Time: [~ rep prt dt]/[~ rep prt tm] [~ rep ct labl] - [~ rep ct ivnm] [~ rep ct add3]] MRA NECK WITHOUT CONTRAST HISTORY: 61 years-old Female Pt c/o CVA acute weakness with dizziness and vomiting. Concern for acute stroke. Decreased GFR. COMPARISON: MRI of the brain of same day. TECHNIQUE: MRA of the neck was obtained with 3-D skva-lq-shnfxl sequencing and MIP reformats. FINDINGS: The aortic arch is not imaged on the axial 3-D pblv-ol-lajxrj images. The imaged bilateral common and internal carotid arteries are widely patent. The vertebral arteries appear to be codominant and patent. The basilar artery is not imaged on the axial 3-D akhg-pa-cfoyde sequence. The basilar artery does however appear to be normal and patent on the coronal MIP images. No high-grade stenosis, proximal branch occlusion or aneurysm identified. Chronic lacunar infarctions are incidentally noted within the kendra. IMPRESSION: 1. No high-grade stenosis, proximal branch occlusion or aneurysm identified identified. 2. Remote appearing lacunar infarctions of the kendra are incidentally noted. Please refer to MRI of the brain of same day for further details. The above report was generated using voice recognition software. It may contain grammatical, syntax or spelling errors. Electronically signed by: Kiran Mckeon M.D. 01/06/2017 4:24 PM Dictated Date/Time: 01/06/2017 4:19 PM The status of this report is Signed. Draft = Not yet reviewed or approved by Radiologist. Signed = Reviewed and approved by Radiologist. <AttendingPhy>Selvin Silver M.D.</AttendingPhy> <FamilyPhy>Edi Castellanos M.D.</FamilyPhy> <PrimaryPhy>Edi Castellanos M.D.</PrimaryPhy> <UnitNumber> [id number]</UnitNumber> <VisitNumber>[id number]</VisitNumber> <PatientName> MATTIE BENJAMIN</PatientName> <DateOfBirth>1955</DateOfBirth> < Location>[facility]</Location> <ServiceDate>01/06/17</ServiceDate> <MNE>ESINDI</MNE> < OrderingPhy>Wade Escamilla MD</OrderingPhy> <OrderingPhyMNE>f rep ord dr bentley< /OrderingPhyMNE> <DictatingPhyMNE>f rep dict dr bentley</DictatingPhyMNE> <CCListMNE >f rep ct mne</CCListMNE> <AdmittingPhyMNE>f pt admit dr bentley</AdmittingPhyMNE> < AttendingPhyMNE>f pt attend dr bentley</AttendingPhyMNE> <ConsultingPhyMNE>f pt consult dr bentley</ConsultingPhyMNE> <FamilyPhyMNE>f pt fam dr bentley</FamilyPhyMNE> <OtherPhyMNE>f pt other dr bentley</OtherPhyMNE> < PrimaryPhyMNE>f pt prim care dr bentley</PrimaryPhyMNE> <ReferringPhyMNE>f pt referring dr bentley</ReferringPhyMNE> Patient Name: MATTIE BENJAMIN Unit Number: [id number] Dictated: 01/06/171555 Transcribed: 01/06/171555 [facility] Printed Date/Time: [~ rep prt dt]/[~ rep prt tm] [~ rep ct labl] - [~ rep ct ivnm] [facility] Radiology Department [place], [place] [id number] Dictated: 01/06/171555 Transcribed: 01/06/171555 [facility] Printed Date/Time: [~ rep prt dt]/[~ rep prt tm] [~ rep ct labl] - [~ rep ct ivnm] BRAIN WITHOUT CONTRAST HISTORY: 61 years-old Female Pt c/o CVA acute headache with hypertension and emesis. Follow-up study. COMPARISON: CT head of same day, MRA of the head of same day, MRI brain 10/25/2016 TECHNIQUE: Multiplanar multisequence MRI of the brain was obtained without contrast. FINDINGS: 2 mm focus of increased signal on the diffusion series and increased signal on the ADC map with increased T2/FLAIR signal is seen involving the left putamen as seen on image 14 of the axial series image 13 of the coronal series suggesting subacute infarction. No additional areas of restricted diffusion are identified. No acute intracranial hemorrhage, midline shift or abnormal extra-axial collections. No hydrocephalus or intracranial mass. Atrophy with chronic microvascular ischemic changes and multiple remote basal ganglia and brainstem remote lacunar infarctions are redemonstrated. Atrophy is again most pronounced within the frontal lobes. Mastoid air cells and paranasal sinuses are generally clear. IMPRESSION: 1. Small subacute lacunar infarction involves the left putamen. No large territorial ischemia, significant edema or mass effect. No hemorrhage. 2. Redemonstration of atrophy with chronic microvascular ischemic changes and multiple remote lacunar infarctions. The above report was generated using voice recognition software. It may contain grammatical, syntax or spelling errors. Electronically signed by: Kiran Mckeon M.D. 01/06/2017 4:02 PM Dictated Date/Time: 01/06/2017 3:56 PM The status of this report is Signed. Draft = Not yet reviewed or approved by Radiologist. Signed = Reviewed and approved by Radiologist. <AttendingPhy>Selvin Silver M.D.</AttendingPhy> <FamilyPhy>Edi Castellanos M.D.</FamilyPhy> <PrimaryPhy>Edi Castellanos M.D.</PrimaryPhy> <UnitNumber> [id number]</UnitNumber> <VisitNumber>[id number]</VisitNumber> <PatientName> MATTIE BENJAMIN</PatientName> <DateOfBirth>1955</DateOfBirth> < Location>[facility]</Location> <ServiceDate>01/06/17</ServiceDate> <MNE>ESINDI</MNE> < OrderingPhy>Wade Escamilla MD</OrderingPhy> <OrderingPhyMNE>f rep ord dr bentley< /OrderingPhyMNE> <DictatingPhyMNE>f rep dict dr bentley</DictatingPhyMNE> <CCListMNE >f rep ct she[facility]</CCListMNE> <AdmittingPhyMNE>f pt admit dr bentley</AdmittingPhyMNE> < AttendingPhyMNE>f pt attend dr bentley</AttendingPhyMNE> <ConsultingPhyMNE>f pt consult dr bentley</ConsultingPhyMNE> <FamilyPhyMNE>f pt fam dr bentley</FamilyPhyMNE> <OtherPhyMNE>f pt other dr bentley</OtherPhyMNE> < PrimaryPhyMNE>f pt prim care dr bentley</PrimaryPhyMNE> <ReferringPhyMNE>f pt referring dr bentley</ReferringPhyMNE> EKG EKG shows normal sinus rhythm at 63 bpm, no acute ST-T changes, and no change compared to 06/19/2015. Impression Assessment and Plan Subacute CVA of left putamen/history of [place]/hypertension-- CT of the head demonstrated old strokes in the right caudate and thalamus, and questioned new strokes in the left thalamus and central kendra. MRI of the brain confirmed a subacute left putamen CVA, and reconfirmed old strokes. Continue aspirin 81 mg by mouth daily. Continue Effient 10 mg by mouth daily. Continue metoprolol tartrate 50 mg by mouth twice a day, and losartan 50 mg by mouth daily. Consults neurology/psychiatric social worker supervisor/PT/OT. Allow for permissive hypertension, with when necessary Lopressor/hydralazine for systolic blood pressure greater than 180. Diabetes mellitus--hold glimepiride. Place on Accu-Cheks before meals and at bedtime with NovoLog coverage per scale. Anxiety--continue alprazolam 0.5 mg by mouth 3 times a day. Level of Care Telemetry Advanced Directives Existing Advance Directive: No Existing Living Will: Yes Existing Power of Seo Professional: Yes Resuscitation Status FULL RESUSCITATION VTE Prophylaxis VTE Risk Assessment Done? Y/N: Yes Risk Level: High Social Service Consult None Apply
[2017-01-06] MEDS: ALPRAZOLAM 0.5 MG TAB PO SCH (19:54)
[2017-01-06] MEDS: METOPROLOL TARTRATE 50 MG TAB PO SCH (19:54)
[2017-01-06 20:21] VITALS: BP 146/75; PULSE 72; TEMP 36.9; O2SAT 97
[2017-01-06] MEDS ORDERED: ALPRAZOLAM 0.5 MG TAB PO SCH (21:00)
[2017-01-07] VITALS (9 sets, daily range): BP systolic 130–195; BP diastolic 71–82; PULSE 47–65; TEMP 36.5–37; O2SAT 93–99
[2017-01-07] MEDS: SODIUM CHLORIDE 0.9% 1000ML 1,000 ML IV SCH ×3 (01:36→20:19)
[2017-01-07 06:23] LABS: BASO % 0.3 %; BASO ABS # 0.03 K/uL (0-0.2); COMPLETE YES; EOS % 2.6 %; HEMATOCRIT 36.3 % (37-47); IG% 0.2 %; LYMPH % 30.7 %; LYMPH ABS # 2.94 K/uL (1.2-3.4); MEAN CELL VOLUME 93.1 fL (80-100); MEAN CORPUSCULAR HEMOGLOBIN 30.3 pg (25-34); MEAN CORPUSCULAR HGB CONC 32.5 g/dl (32-36); MEAN PLATELET VOLUME 10.9 fL (7.4-10.4); MONO % 4.5 %; NEUT % 61.7 %; PLATELET COUNT 150 K/uL (130-400); WHITE BLOOD COUNT 9.58 K/uL (4.8-10.8)
[2017-01-07 07:05] LABS: BLOOD UREA NITROGEN 25 mg/dl (7-18); BUN/CREATININE RATIO 14.9 (10-20); CALCIUM 8.8 mg/dl (8.5-10.1); CARBON DIOXIDE 25 mmol/L (21-32); CHLORIDE 111 mmol/L (98-107); CHOLESTEROL 206 mg/dl (0-200); GLUCOSE 99 mg/dl (70-99); POTASSIUM 4.1 mmol/L (3.5-5.1); SODIUM 143 mmol/L (136-145); TRIGLYCERIDES 220 mg/dl (0-150); VERY LOW DENSITY LIPOPROT CALC 44 mg/dl
[2017-01-07 07:10] LABS: CHOLESTEROL/HDL RATIO 7.6; HDL CHOLESTEROL 27 mg/dl; LDL CHOLESTEROL CALCULATED 135 mg/dl
[2017-01-07] MEDS: ATORVASTATIN 40 MG TAB PO SCH (08:13)
[2017-01-07] MEDS: ASPIRIN 81 MG ECTAB PO SCH (08:13)
[2017-01-07] MEDS: PRASugrel TAB 10 MG TAB PO SCH (08:13)
[2017-01-07] MEDS: METOPROLOL TARTRATE 50 MG TAB PO SCH ×2 (08:13→20:19)
[2017-01-07] MEDS: ALPRAZOLAM 0.5 MG TAB PO SCH ×3 (08:13→20:27)
[2017-01-07] MEDS: LOSARTAN POTASSIUM 50 MG TAB PO SCH (08:13)
--- NOTE | 2017-01-07 08:51 | Progress Note ---
Subjective Date of Service: Jan 07, 2017. Subjective Pt evaluation today including: conversation w/ patient, physical exam, chart review, lab review, review of studies, conversation w/ showroom consultant, review of inpatient medication list Up and walk in bedside, reports generalized weakness, hoarse voice is not new , deny fever and chill, deny weakness or tingling and numbness, Problem List Medical Problems: (1) Apical myocardial infarction Status: Acute (2) Chest pain Status: Acute (3) HTN (hypertension) Status: Chronic (4) Intractable vomiting Status: Acute Review of Systems Constitutional: + fatigue, No fever, No chills, No sweats, No weight loss, No problem reported Eyes: No worsening of vision, No eye pain, No redness, No discharge, No diplopia ENT: + see HPI, No hearing loss, No unusual epistaxis, No nasal symptoms, No sore throat, No tinnitus, No dental problems, No trouble swallowing Respiratory: + cough, No sputum, No wheezing, No shortness of breath, No dyspnea on exertion, No dyspnea at rest, No hemoptysis Cardiac: No chest pain, No orthopnea, No PND, No edema, No claudication, No palpitations Abdomen: No pain, No nausea, No vomiting, No diarrhea, No constipation Musculoskeletal: No joint pain, No muscle pain, No swelling, No calf pain Female : No dysuria, No urinary frequency, No hematuria, No incontinence, No abnormal vaginal bleeding, No vaginal discharge Neurologic: No memory loss, No paralysis, No weakness, No numbness/tingling, No vertigo, No balance problems Psychiatric: No depression symptoms, No anhedonism, No anxiety, No insomnia, No substance abuse Heme: No abnormal bleeding/bruising, No clotting problems, No swollen lymph nodes, No night sweats Endo: No fatigue, No excessive thirst, No excessive urination Skin: No rash, No itch, No new/changing skin lesions, No color change, No bleeding Objective Vital Signs Date Time Temp Pulse Resp B/P (MAP) Pulse Ox O2 Delivery O2 Flow Rate FiO2 01/07/17 07:47 37.0 61 20 179/82 (114) 93 Room Air 01/07/17 04:00 Room Air 01/07/17 04:00 36.5 57 18 158/71 (100) 96 Room Air 01/07/17 00:00 36.6 52 18 130/75 (93) 96 Room Air 01/06/17 23:59 Room Air 01/06/17 20:21 36.9 72 22 146/75 (98) 97 Room Air 01/06/17 20:00 Room Air 01/06/17 16:11 36.7 72 22 149/66 (93) 95 Room Air 01/06/17 16:00 98 Room Air 01/06/17 15:32 36.4 68 20 135/73 98 01/06/17 14:37 68 20 135/73 98 Room Air 01/06/17 14:17 64 207/75 01/06/17 14:10 98 Room Air 01/06/17 13:26 55 168/84 98 01/06/17 12:22 36.4 78 20 191/73 97 Room Air 01/06/17 12:09 72 Physical Exam General Appearance: WD/WN, no apparent distress, + thin, + pertinent finding ( looks much older than her age) Eyes: normal inspection, PERRL, EOMI, sclerae normal ENT: normal ENT inspection, hearing grossly normal, pharynx normal Neck: supple, no adenopathy, thyroid normal, no JVD, no carotid bruits, trachea midline, + pertinent finding (obvious hoarse voice) Respiratory/Chest: chest non-tender, lungs clear, normal breath sounds, no respiratory distress, no accessory muscle use, + decreased breath sounds ( significant decreased) Cardiovascular: regular rate, rhythm, no edema, no gallop, no JVD, no murmur Abdomen: normal bowel sounds, non tender, soft, no organomegaly, no pulsatile mass Extremities: normal range of motion, non-tender, normal inspection, no pedal edema, no calf tenderness, normal capillary refill, pelvis stable Neurologic/Psychiatric: pin sticker II-XII nml as tested, no motor/sensory deficits, alert, normal mood/affect, oriented x 3, + pertinent finding (NIH stroke scale is 0) Skin: normal color, warm/dry, no rash Lymphatic: no adenopathy Laboratory Results Last 24 Hours Test 01/06/17 11:58 01/06/17 12:05 01/06/17 12:15 01/06/17 12:16 Creatine Kinase MB Ratio White Blood Count 12.93 K/uL Red Blood Count 4.84 M/uL Hemoglobin 15.0 g/dL Hematocrit 44.9 % Mean Corpuscular Volume 92.8 fL Mean Corpuscular Hemoglobin 31.0 pg Mean Corpuscular Hemoglobin Concent 33.4 g/dl Platelet Count 180 K/uL Mean Platelet Volume 11.4 fL Neutrophils (%) (Auto) 73.7 % Lymphocytes (%) (Auto) 19.0 % Monocytes (%) (Auto) 4.5 % Eosinophils (%) (Auto) 2.2 % Basophils (%) (Auto) 0.3 % Neutrophils # (Auto) 9.52 K/uL Lymphocytes # (Auto) 2.46 K/uL Monocytes # (Auto) 0.58 K/uL Eosinophils # (Auto) 0.29 K/uL Basophils # (Auto) 0.04 K/uL RDW Standard Deviation 48.1 fL RDW Coefficient of Variation 14.1 % Immature Granulocyte % (Auto) 0.3 % Immature Granulocyte # (Auto) 0.04 K/uL Sodium Level 139 mmol/L Potassium Level mmol/L Chloride Level 109 mmol/L Carbon Dioxide Level 24 mmol/L Anion Gap 6.0 mmol/L 13.0 mmol/L Blood Urea Nitrogen 25 mg/dl Creatinine 1.80 mg/dl Est Creatinine Clear Calc Drug Dose 29.7 ml/min Estimated GFR () 34.6 Estimated GFR (Non- 29.9 BUN/Creatinine Ratio 14.0 Random Glucose 155 mg/dl Calcium Level 9.2 mg/dl Total Bilirubin 0.7 mg/dl Direct Bilirubin mg/dl Aspartate Amino Transf (AST/SGOT) U/L Alanine Aminotransferase (ALT/SGPT) 19 U/L Alkaline Phosphatase 116 U/L Total Creatine Kinase U/L Creatine Kinase MB < 0.5 ng/ml Troponin I < 0.015 ng/ml Total Protein 7.9 gm/dl Albumin 3.7 gm/dl Lipase 448 U/L Urine Color YELLOW Urine Appearance CLEAR Urine pH 5.0 Urine Specific [place] 1.020 Urine Protein 1+ Urine Glucose (UA) TRACE Urine Ketones NEG Urine Occult Blood TRACE Urine Nitrite NEG Urine Bilirubin NEG Urine Urobilinogen NEG Urine Leukocyte Esterase NEG Urine WBC (Auto) 1-5 /hpf Urine RBC (Auto) 0-4 /hpf Urine Hyaline Casts (Auto) 1-5 /lpf Urine Epithelial Cells (Auto) >30 /lpf Urine Bacteria (Auto) NEG Bedside Hemoglobin 15.6 g/dl Bedside Hematocrit 46 % Bedside Sodium 140 mEq/L Bedside Potassium 4.5 mEq/L Bedside Chloride 107 mEq/L Bedside Total CO2 25 mEq/l Bedside Blood Urea Nitrogen 37 mg/dl Bedside Creatinine 1.7 mg/dl Bedside Glucose (other) 162 mg/dl Bedside Ionized Calcium (Shannan) 1.15 mmol/l Test 01/06/17 12:36 01/06/17 13:37 01/06/17 13:44 01/06/17 20:50 Prothrombin Time 10.4 SECONDS Prothromb Time International Ratio 1.0 Potassium Level 4.3 mmol/L Direct Bilirubin 0.1 mg/dl Aspartate Amino Transf (AST/SGOT) 11 U/L Total Creatine Kinase 41 U/L 42 U/L Activated Partial Thromboplast Time 23.0 SECONDS Partial Thromboplastin Ratio 0.9 Creatine Kinase MB < 0.5 ng/ml Creatine Kinase MB Ratio Troponin I < 0.015 ng/ml Test 01/07/17 05:57 01/07/17 06:40 White Blood Count 9.58 K/uL Red Blood Count 3.90 M/uL Hemoglobin 11.8 g/dL Hematocrit 36.3 % Mean Corpuscular Volume 93.1 fL Mean Corpuscular Hemoglobin 30.3 pg Mean Corpuscular Hemoglobin Concent 32.5 g/dl Platelet Count 150 K/uL Mean Platelet Volume 10.9 fL Neutrophils (%) (Auto) 61.7 % Lymphocytes (%) (Auto) 30.7 % Monocytes (%) (Auto) 4.5 % Eosinophils (%) (Auto) 2.6 % Basophils (%) (Auto) 0.3 % Neutrophils # (Auto) 5.91 K/uL Lymphocytes # (Auto) 2.94 K/uL Monocytes # (Auto) 0.43 K/uL Eosinophils # (Auto) 0.25 K/uL Basophils # (Auto) 0.03 K/uL RDW Standard Deviation 48.9 fL RDW Coefficient of Variation 14.5 % Immature Granulocyte % (Auto) 0.2 % Immature Granulocyte # (Auto) 0.02 K/uL Sodium Level 143 mmol/L Potassium Level 4.1 mmol/L Chloride Level 111 mmol/L Carbon Dioxide Level 25 mmol/L Anion Gap 7.0 mmol/L Blood Urea Nitrogen 25 mg/dl Creatinine 1.70 mg/dl Est Creatinine Clear Calc Drug Dose 31.3 ml/min Estimated GFR () 37.1 Estimated GFR (Non- 32.0 BUN/Creatinine Ratio 14.9 Random Glucose 99 mg/dl Calcium Level 8.8 mg/dl Total Creatine Kinase 39 U/L Creatine Kinase MB < 0.5 ng/ml Creatine Kinase MB Ratio Troponin I < 0.015 ng/ml Triglycerides Level 220 mg/dl Cholesterol Level 206 mg/dl HDL Cholesterol 27 mg/dl LDL Cholesterol, Calculated 135 mg/dl VLDL Cholesterol, Calculated 44 mg/dl Cholesterol/HDL Ratio 7.6 Bedside Glucose 109 mg/dl Assessment and Plan 61-year-old female admitted on 01/06/2017 with complaint of fatigue, nausea, abdominal discomfort, diarrhea over the last 3 days, Per report, was in addition especially generally weak this morning when they tried to get her up out of bed, no any sick exposures that they are aware of, not on any antibiotics, and has not had any recent travels. She has had a history of previous strokes, , continues to smoke tobacco but she denied today Subacute CVA of left putamen/history of [place]/hypertension, stable CT of the head demonstrated old strokes in the right caudate and thalamus, and questioned new strokes in the left thalamus and central kendra. MRI of the brain confirmed a subacute left putamen CVA, and reconfirmed old strokes. Continue aspirin 81 mg by mouth daily. Continue Effient 10 mg by mouth daily. Continue metoprolol tartrate 50 mg by mouth twice a day, and losartan 50 mg by mouth daily. Consults neurology/social work supervisor/PT/OT. Allow for permissive hypertension, with when necessary Lopressor/hydralazine for systolic blood pressure greater than 180. Possibly be panel was done, LDL 175, total cholesterol 206, I started Lipitor 40 mg by mouth daily Tobacco abuse disorder, has extensive counseling about quit smoking and offered help, however she denied current smoking Significant past medical history of CVA, and peripheral artery disease, she reported left lower extremity 70% blockages of artery, and right lower extremity 100% blockage of artery Supposed to have procedure done in [facility], but has not done yet, I advised her to follow-up with PCP upon these Diabetes mellitus--hold glimepiride. Continue insulin sliding scale, check HbA1c, Place on Accu-Cheks before meals and at bedtime with NovoLog coverage per scale. Hoarse voice is chronic, had hx of some vocal cord polyps, which was removed, has ENT to follow-up, I advised her to continue to follow up with ENT PT, OT evaluation and recommend of discharge plan Possible discharge tomorrow Continued [facility] stay due to: multiple IV medications needed Discharge planning: home
[2017-01-07] MEDS ORDERED: PRASugrel TAB 10 MG TAB PO SCH (09:00)
[2017-01-07] MEDS ORDERED: GLUCOSE 40% GEL 15 GM TUBE PO PRN (09:45)
[2017-01-07] MEDS ORDERED: DEXTROSE 50% 50 ML SYR IV PRN (09:45)
[2017-01-07] MEDS ORDERED: GLUCAGON FOR INJ 1 MG VIAL SQ PRN (09:45)
[2017-01-07] MEDS ORDERED: GLUCOSE 10 TABS/TUBE PO PRN (09:45)
--- NOTE | 2017-01-07 11:53 | Neurology Consultation ---
Neurology Consultation Date of Consultation: Jan 07, 2017. Attending Physician: Kush Brewer MD, PhD Primary Care Physician: Edi Castellanos M.D. Reason for Consultation: Consultation for subacute stroke History of Present Illness Source: patient, family, clinic records, hospital records This is a 61-year-old right-handed female who presents with symptoms of nausea, vomiting, diarrhea, generalized weakness for the last couple of days. Patient denies any new numbness or weakness. Denies any acute changes with her vision or speech. She does have ongoing issues with hoarse voice. Also reports that her legs are generally weak and has seen a vascular surgeon for peripheral vascular disease. Reports chronic decreased sensation in her bilateral feet and right thumb. Patient has had an EMG of her upper extremity in the recent past which showed a mild right carpal syndrome. Patient denies any chest pain or shortness of breath. There are some recent reports and that she is an active smoker, but she reports to me that she quit 10 years ago. She denies any alcohol use. According to family she normally ambulates with a walker but yesterday was unable to get out of bed and was vomiting. Because of this they brought her to the emergency room for evaluation. The patient has been hydrated and MRI showed a tiny subacute stroke. MRI of the brain report and images reviewed by myself. Noted to have a tiny subacute left putamen ischemic stroke. In addition has evidence of old bilateral cerebellar, bilateral kendra, bilateral thalami, and right basilar and right subcortical temporal T2 hyperintensities likely indicating small vessel ischemic strokes. It is noted that the patient also had an MRI of her brain in October 2016 which noted 2 small foci in the left kendra as well. MRA of the head and neck were unremarkable and no critical stenosis was found Total cholesterol 206, LDL 135, HDL 26, triglycerides 220 Hemoglobin A1c is pending Also noted on labs creatinine 1.7 and elevated lipase of 448 EKG was unremarkable Echocardiogram is pending Past Medical/Surgical History Medical Problems: (1) Apical myocardial infarction Status: Acute (2) Chest pain Status: Acute (3) HTN (hypertension) Status: Chronic (4) Intractable vomiting Status: Acute Hypertension Dyslipidemia Diabetes type 2 Peripheral vascular disease History of multiple strokes History of multiple MIs CAD status post multiple stenting Chronic kidney disease Vocal cord hoarseness and polyps Mild right carpal tunnel syndrome Family History Family history is negative for CAD and history of early MIs Diabetes and breast cancer also family Social History Patient lives alone with help with family. She normally ambulates with the assistance of a walker. Although recent notes suggest that she is still smoking , she tells me today that she quit 10 years ago. No alcohol use. No illegal drug use or supplement use. Smoking Status: Current every day smoker Smokeless Tobacco Use: No Alcohol Use: none Drug Use: none Marital Status: Housing Status: lives with significant other Occupation Status: unemployed Allergies Coded Allergies: No Known Allergies (Verified , 01/06/17) Current Inpatient Medications Current Inpatient Medications Medications (Trade) Dose Ordered Sig/Jakob Route Start Time Stop Time Status Last Admin Dose Admin Ioversol (Optiray 320) 125 ml UD PRN IV 01/06/17 12:30 01/10/17 12:29 Miscellaneous Information (Pharmacist Discharge Med Rec Consult) 1 ea UD PRN N/A 01/06/17 15:15 02/05/17 15:14 Sodium Chloride 1,000 ml @ 100 mls/hr Q10H IV 01/06/17 15:04 02/05/17 15:03 01/07/17 01:36 100 MLS/HR Acetaminophen (Tylenol Tab) 650 mg Q4H PRN PO 01/06/17 15:15 02/05/17 15:14 Aspirin (Ecotrin Tab) 81 mg DAILY PO 01/07/17 09:00 02/06/17 08:59 01/07/17 08:13 81 MG Losartan Potassium (coZAAR TAB) 50 mg DAILY PO 01/07/17 09:00 02/06/17 08:59 01/07/17 08:13 50 MG Metoprolol Tartrate (Lopressor Tab) 50 mg BID PO 01/06/17 21:00 02/05/17 20:59 01/07/17 08:13 50 MG Prasugrel (effiENT TAB) 10 mg DAILY PO 01/07/17 09:00 02/06/17 08:59 01/07/17 08:13 10 MG Metoprolol Tartrate (Lopressor Iv) 5 mg Q4 PRN IV 01/06/17 15:15 02/05/17 15:14 Hydralazine HCl (HydrALAZINE INJ) 10 mg Q4H PRN IV. 01/06/17 15:15 02/05/17 15:14 Alprazolam (Xanax Tab) 0.5 mg TID PO 01/06/17 20:00 02/05/17 19:59 01/07/17 08:13 0.5 MG Atorvastatin Calcium (Lipitor Tab) 40 mg QAM PO 01/07/17 09:00 02/06/17 08:59 01/07/17 08:13 40 MG Insulin Aspart (novoLOG ASPART) SLIDING SCALE G... ACHS SC 01/07/17 11:00 02/06/17 10:59 Glucose (Glucose 40% Gel) 15-30 GRAMS 15 GRAMS... UD PRN PO 01/07/17 09:45 02/06/17 09:44 Glucose (Glucose Chew Tab) 4-8 Tablets 4 Tabl... UD PRN PO 01/07/17 09:45 02/06/17 09:44 Dextrose (Dextrose 50% 50ML Syringe) 25-50ML OF 50% DW IV FOR... UD PRN IV 01/07/17 09:45 02/06/17 09:44 Glucagon (Glucagon Inj) 1 mg UD PRN SQ 01/07/17 09:45 02/06/17 09:44 Review of Systems Complete review of systems otherwise negative except for the above noted in history of present illness Physical Exam Vital Signs (Past 24 Hrs): Date Time Temp Pulse Resp B/P (MAP) Pulse Ox O2 Delivery O2 Flow Rate FiO2 01/07/17 10:00 157/77 (103) 01/07/17 08:00 Room Air 01/07/17 08:00 183/79 (113) 01/07/17 07:47 37.0 61 20 179/82 (114) 93 Room Air 01/07/17 04:00 Room Air 01/07/17 04:00 36.5 57 18 158/71 (100) 96 Room Air 01/07/17 00:00 36.6 52 18 130/75 (93) 96 Room Air 01/06/17 23:59 Room Air 01/06/17 20:21 36.9 72 22 146/75 (98) 97 Room Air 01/06/17 20:00 Room Air 01/06/17 16:11 36.7 72 22 149/66 (93) 95 Room Air 01/06/17 16:00 98 Room Air 01/06/17 15:32 36.4 68 20 135/73 98 01/06/17 14:37 68 20 135/73 98 Room Air 01/06/17 14:17 64 207/75 01/06/17 14:10 98 Room Air 01/06/17 13:26 55 168/84 98 01/06/17 12:22 36.4 78 20 191/73 97 Room Air 01/06/17 12:09 72 Gen.: Patient is alert and sitting in bed, in no acute distress. HEENT: Normocephalic /atraumatic, no scleral icterus. Does have some redness under her left eye Heart: Regular rate and rhythm Extremities: No gross deformities or rashes noted Neurological examination: Mental status: Patient is alert and oriented x3. Attention and concentration normal for the situation. Able to give her own history. Somewhat irritable over current situation. Seemed somewhat fixated over other chronic medical problems such as peripheral vascular disease and decreased sensation in right thumb. Speech is fluent without any dysarthria or aphasia noted. Voice is low volume and horse Cranial nerve: Funduscopic examination was limited but unremarkable. No papilledema. Pupils equally round and reactive to light. Extraocular muscles intact without nystagmus. No facial asymmetry noted. Facial sensation intact. Tongue is midline. Good palatal elevation. Good shoulder shrug bilaterally. Hearing grossly intact to voice. Strength: 5/5 both proximal and distally in all extremities with the exception of 4/5 bilateral hip flexion with give way weakness (may not up have been giving full effort). There is no arm drift. Tone is normal. Sensation: Grossly intact to light touch in all extremities. Noted altered sensation in the tip of right thumb (may also have an underlying wart that is contributing) as well as decreased sensation in bilateral feet. Deep tendon reflexes: +1 in bilateral biceps, brachioradialis and patellar. Coordination: Patient had good finger to nose without dysmetria. Good heel to [place] without ataxia Station within the bed was normal Laboratory Results Past 24 Hours: 01/07/17 05:57 Red Blood Count 3.90, Mean Corpuscular Volume 93.1, Mean Corpuscular Hemoglobin 30.3, Mean Corpuscular Hemoglobin Concent 32.5, Mean Platelet Volume 10.9, Neutrophils (%) (Auto) 61.7, Lymphocytes (%) (Auto) 30.7, Monocytes (%) (Auto) 4.5, Eosinophils (%) (Auto) 2.6, Basophils (%) (Auto) 0.3, Neutrophils # (Auto) 5.91, Lymphocytes # (Auto) 2.94, Monocytes # (Auto) 0.43, Eosinophils # (Auto) 0.25, Basophils # (Auto) 0.03 01/07/17 05:57 Test 01/06/17 12:05 01/06/17 12:15 01/06/17 12:16 01/06/17 12:36 Total Bilirubin 0.7 mg/dl (0.2-1) Alanine Aminotransferase (ALT/SGPT) 19 U/L (12-78) Alkaline Phosphatase 116 U/L (45-117) Total Protein 7.9 gm/dl (6.4-8.2) Albumin 3.7 gm/dl (3.4-5.0) Lipase 448 U/L (73-393) Urine Color YELLOW Urine Appearance CLEAR (CLEAR) Urine pH 5.0 (4.5-7.5) Urine Specific [place] 1.020 (1.000-1.030) Urine Protein 1+ (NEG) Urine Glucose (UA) TRACE (NEG) Urine Ketones NEG (NEG) Urine Occult Blood TRACE (NEG) Urine Nitrite NEG (NEG) Urine Bilirubin NEG (NEG) Urine Urobilinogen NEG (NEG) Urine Leukocyte Esterase NEG (NEG) Urine WBC (Auto) 1-5 /hpf (0-5) Urine RBC (Auto) 0-4 /hpf (0-4) Urine Hyaline Casts (Auto) 1-5 /lpf (0-5) Urine Epithelial Cells (Auto) >30 /lpf (0-5) Urine Bacteria (Auto) NEG (NEG) Bedside Hemoglobin 15.6 g/dl (12.0-16.0) Bedside Hematocrit 46 % (37-47) Bedside Sodium 140 mEq/L (135-144) Bedside Potassium 4.5 mEq/L (3.3-5.0) Bedside Chloride 107 mEq/L (101-112) Bedside Total CO2 25 mEq/l (24-31) Bedside Blood Urea Nitrogen 37 mg/dl (7-18) Bedside Creatinine 1.7 mg/dl (0.6-1.3) Bedside Glucose (other) 162 mg/dl (70-99) Bedside Ionized Calcium (Shannan) 1.15 mmol/l (1.12-1.32) Prothrombin Time 10.4 SECONDS (9.0-12.0) Prothromb Time International Ratio 1.0 (0.9-1.1) Test 01/06/17 13:37 01/06/17 13:44 01/07/17 05:57 01/07/17 11:10 Direct Bilirubin 0.1 mg/dl (0-0.2) Aspartate Amino Transf (AST/SGOT) 11 U/L (15-37) Activated Partial Thromboplast Time 23.0 SECONDS (21.0-31.0) Partial Thromboplastin Ratio 0.9 White Blood Count 9.58 K/uL (4.8-10.8) Red Blood Count 3.90 M/uL (4.2-5.4) Hemoglobin 11.8 g/dL (12.0-16.0) Hematocrit 36.3 % (37-47) Mean Corpuscular Volume 93.1 fL (80-100) Mean Corpuscular Hemoglobin 30.3 pg (25-34) Mean Corpuscular Hemoglobin Concent 32.5 g/dl (32-36) Platelet Count 150 K/uL (130-400) Mean Platelet Volume 10.9 fL (7.4-10.4) Neutrophils (%) (Auto) 61.7 % Lymphocytes (%) (Auto) 30.7 % Monocytes (%) (Auto) 4.5 % Eosinophils (%) (Auto) 2.6 % Basophils (%) (Auto) 0.3 % Neutrophils # (Auto) 5.91 K/uL (1.4-6.5) Lymphocytes # (Auto) 2.94 K/uL (1.2-3.4) Monocytes # (Auto) 0.43 K/uL (0.11-0.59) Eosinophils # (Auto) 0.25 K/uL (0-0.5) Basophils # (Auto) 0.03 K/uL (0-0.2) RDW Standard Deviation 48.9 fL (36.4-46.3) RDW Coefficient of Variation 14.5 % (11.5-14.5) Immature Granulocyte % (Auto) 0.2 % Immature Granulocyte # (Auto) 0.02 K/uL (0.00-0.02) Anion Gap 7.0 mmol/L (3-11) Est Creatinine Clear Calc Drug Dose 31.3 ml/min Estimated GFR () 37.1 Estimated GFR (Non- 32.0 BUN/Creatinine Ratio 14.9 (10-20) Calcium Level 8.8 mg/dl (8.5-10.1) Total Creatine Kinase 39 U/L (26-192) Creatine Kinase MB < 0.5 ng/ml (0.5-3.6) Creatine Kinase MB Ratio (0-3.0) Troponin I < 0.015 ng/ml (0-0.045) Triglycerides Level 220 mg/dl (0-150) Cholesterol Level 206 mg/dl (0-200) HDL Cholesterol 27 mg/dl LDL Cholesterol, Calculated 135 mg/dl VLDL Cholesterol, Calculated 44 mg/dl Cholesterol/HDL Ratio 7.6 Bedside Glucose 107 mg/dl (70-90) Test 01/07/17 11:22 Imaging As noted above in history of present illness Impression This is a 61-year-old female with a tiny subacute left putamen ischemic stroke. Likely small vessel etiology. Unclear whether recent illness with vomiting and diarrhea cause dehydration contributing to small vessel ischemic stroke, versus a small ischemic stroke causing nonspecific symptoms of not feeling well. Considering that a stroke should not cause diarrhea, I'm more apt to believe that dehydration may have been a contributing factor. It is concerning that the patient has had a recent tiny subacute ischemic stroke in the left kendra in October as well. Known stroke risk factors include hypertension, dyslipidemia, diabetes type 2, history of multiple MIs, multiple lacunar strokes, and peripheral vascular disease. On examination no significant residual neurological focal deficits, but I would not be surprised if she has some component of vascular cognitive changes due to multiple lacunar strokes. Plan Patient is already on 2 antiplatelets (aspirin and Effient). No indications for anticoagulation unless paroxysmal A. fib is found. Agree with statin therapy for dyslipidemia Follow-up hemoglobin A1c and echocardiogram results I have ordered beta-2 glycoprotein, anticardiolipin antibodies, homocystine, Lupus anticoagulant for further evaluation of stroke etiology/risk factors. Results can be followed up as an outpatient Patient was requesting Xanax 3 times a day. Please note that per last primary care note, Dr. Castellanos had decreased it to twice a day in December. Follow-up PT/OT and speech therapies for discharge planning. Blood pressure recommendations while in hospital 175/95-150/80 Avoid hypotension and dehydration Stroke risk factor modifications and recommendations: Blood pressure recommendations for the first month post hospital discharge 150/ 90-130/80, and after that blood pressure recommendations 130/80-110/70 Total cholesterol goal 100- 200 and LDL goal less than 100 Hemoglobin A1c goal less than 7 Encourage cardiovascular exercise at least 3 times a week for 30 minutes. Follow-up in neurology clinic in 1 month with myself or physician foundation assistant for post stroke hospital follow-up. If no A. fib is found in the hospital, considering her multiple strokes, I recommend further evaluation with an outpatient Holter monitor were 30 day event monitor to rule out paroxysmal A. fib Thank you for allowing me to participate in this patient's care. If there is any questions or concerns, feel free to call/page me. Evaluation of elevated lipase per hospitalist team.
[2017-01-07] MEDS: INSULIN ASPART 100 UNITS/ML 3 ML PEN SC SCH ×3 (12:58→20:18)
--- NOTE | 2017-01-07 14:05 | ECHOCARDIOGRAM REPORT ---
*NOTICE TO RECEIVING LIBERTARIAN AGENCY This information is strictly Confidential and protected under [place] law. [place] law prohibits you from making any further disclosure of this information unless further disclosure is expressly permitted by the written consent of the person to whom it pertains or is authorized by law. A general authorization for the release of medical or other information is not sufficient for this purpose. Hospital accepts no responsibility if the information is made available to any other person, INCLUDING THE PATIENT. Interpretation Summary * Name: MATTIE BENJAMIN Study Date: 01/07/2017 06:43 AM BP: 135/73 mmHg * Patient Location: .2T\S\E215\S\1 HR: 60 * : 1955 (M/d/yyy) Gender: Female Height: 62 in * Age: 61 yrs Ethnicity: [place] Weight: 149 lb * Ordering Physician: Selvin Silver * Referring Physician: Self, Referred * Performed By: Jagruti Torrez [facility] * * Reason For Study: CEREBRAL ISCHEMIA / EMBOLUS * BSA: 1.7 m2 * -- Conclusions -- * Left ventricular systolic function is normal. * No regional wall motion abnormalities noted. * Ejection Fraction = 55-60%. * There is mild concentric left ventricular hypertrophy. * Injection of contrast documented no interatrial shunt. * There is mild mitral regurgitation. Procedure Details * A complete two-dimensional transthoracic echocardiogram was performed (2D, M-mode, Doppler and color flow Doppler). * A saline contrast injection was performed to assess for cardiac shunting. * The injection was performed through an intravenous line in the right arm. * The attending nurse who injected the saline contrast was ROBERT SANCHEZ, RN. * A total of 20 cc of agitated saline was given. Left Ventricle * The left ventricle is normal in size. * There is mild concentric left ventricular hypertrophy. * Left ventricular systolic function is normal. * Ejection Fraction = 55-60%. * No regional wall motion abnormalities noted. Right Ventricle * The right ventricle is grossly normal size. * The right ventricular systolic function is normal as assessed by tricuspid annular plane systolic excursion (TAPSE) (normal >1.5 cm). Atria * The left atrium is mildly dilated. * Right atrial size is normal. * Injection of contrast documented no interatrial shunt. * Lipomatous hypertrophy of the interatrial septum is noted. Mitral Valve * The mitral valve is grossly normal. * There is no mitral valve stenosis. * There is mild mitral regurgitation. Tricuspid Valve * The tricuspid valve is not well visualized, but is grossly normal. * There is no tricuspid stenosis. * Significant tricuspid regurgitation is absent. Aortic Valve * The aortic valve is normal in structure and function. * No hemodynamically significant valvular aortic stenosis. * There is no significant aortic regurgitation. Pulmonic Valve * The pulmonary valve is not well seen, but the Doppler examination is normal without significant regurgitation or stenosis. Great Vessels * The aortic root is normal size. * The pulmonary artery is not well visualized, but is probably normal size. Pericardium/Pleural * There is no pericardial effusion. Great Vessels * Normal inferior vena cava size and collapsability with sniff indicates a normal right atrial pressure of 3 mmHg MMode 2D Measurements and Calculations IVSd 1.3 cm IVSs 1.5 cm LVIDd 4.1 cm LVIDs 3.4 cm LVPWd 1.2 cm LVPWs 1.5 cm IVS/LVPW 1.1 FS 16.9 % EDV(Teich) 75.8 ml ESV(Teich) 48.7 ml EF(Teich) 35.7 % EDV(cubed) 70.8 ml ESV(cubed) 40.6 ml EF(cubed) 42.6 % % IVS thick 13.0 % % LVPW thick 25.3 % LV mass(C)d 192.8 grams LV mass(C)dI 114.3 grams/m\S\2 LV mass(C)s 194.7 grams LV mass(C)sI 115.4 grams/m\S\2 SV(Teich) 27.1 ml SI(Teich) 16.1 ml/m\S\2 SV(cubed) 30.2 ml SI(cubed) 17.9 ml/m\S\2 Ao root diam 2.5 cm Ao root area 4.9 cm\S\2 ACS 1.6 cm LA dimension 3.9 cm LA/Ao 1.5 LVOT diam 2.0 cm LVOT area 3.0 cm\S\2 Doppler Measurements and Calculations MV E max maribel 111.1 cm/sec MV A max maribel 100.3 cm/sec MV E/A 1.1 MV P1/2t max maribel 115.4 cm/sec MV P1/2t 99.7 msec MVA(P1/2t) 2.2 cm\S\2 MV dec slope 339.0 cm/sec\S\2 MV dec time 0.22 sec Ao V2 max 137.7 cm/sec Ao max PG 7.6 mmHg Ao max PG (full) 4.6 mmHg WILBERT(V,A) 1.9 cm\S\2 WILBERT(V,D) 1.9 cm\S\2 LV V1 max PG 3.0 mmHg LV V1 max 86.3 cm/sec PA V2 max 105.9 cm/sec PA max PG 4.5 mmHg
[2017-01-08 03:24] VITALS: BP 181/73; PULSE 55; TEMP 36.6; O2SAT 96
[2017-01-08 04:04] VITALS: BP 156/77
[2017-01-08 06:34] LABS: ESTIMATED AVERAGE GLUCOSE 114 mg/dl; HA1C FLAG Normal (Normal)
[2017-01-08] MEDS: INSULIN ASPART 100 UNITS/ML 3 ML PEN SC SCH (07:00)
[2017-01-08 07:19] VITALS: BP 175/76; PULSE 58; TEMP 36.6; O2SAT 99
[2017-01-08 07:27] LABS: BASO % 0.6 %; BASO ABS # 0.06 K/uL (0-0.2); COMPLETE YES; EOS % 3.6 %; HEMATOCRIT 36.7 % (37-47); IG% 0.3 %; LYMPH % 29.3 %; LYMPH ABS # 2.81 K/uL (1.2-3.4); MEAN CELL VOLUME 91.3 fL (80-100); MEAN CORPUSCULAR HEMOGLOBIN 30.6 pg (25-34); MEAN CORPUSCULAR HGB CONC 33.5 g/dl (32-36); MEAN PLATELET VOLUME 11.5 fL (7.4-10.4); NEUT % 60.2 %; PLATELET COUNT 149 K/uL (130-400); RED BLOOD COUNT 4.02 M/uL (4.2-5.4); WHITE BLOOD COUNT 9.59 K/uL (4.8-10.8)
[2017-01-08 07:59] LABS: BUN/CREATININE RATIO 15.9 (10-20); CREATININE 1.7 mg/dl (0.60-1.20); MAGNESIUM 2.2 mg/dl (1.8-2.4); POTASSIUM 3.8 mmol/L (3.5-5.1)
[2017-01-08] MEDS: PRASugrel TAB 10 MG TAB PO SCH (08:47)
[2017-01-08] MEDS: ASPIRIN 81 MG ECTAB PO SCH (08:47)
[2017-01-08] MEDS: ALPRAZOLAM 0.5 MG TAB PO SCH (08:47)
[2017-01-08] MEDS: LOSARTAN POTASSIUM 50 MG TAB PO SCH (08:47)
[2017-01-08] MEDS: METOPROLOL TARTRATE 50 MG TAB PO SCH (08:47)
[2017-01-08] MEDS: ATORVASTATIN 40 MG TAB PO SCH (09:20)
[2017-01-08] MEDS: SODIUM CHLORIDE 0.9% 1000ML 1,000 ML IV SCH (10:18)
[2017-01-08 11:03] VITALS: BP 173/80; PULSE 43; TEMP 36.5; O2SAT 98
[2017-01-08] MEDS ORDERED: LPT40 PO (11:21)
--- NOTE | 2017-01-08 11:42 | Discharge Instructions ---
Discharge Instructions Date of Service Jan 08, 2017. Admission Reason for Admission: Cva, Cvd Discharge Discharge Diagnosis / Problem: Stroke Discharge Goals Goal(s): Decrease discomfort, Improve function, Diagnostic testing, Therapeutic intervention Activity Recommendations Activity Limitations: resume your previous activity (as tolerated) . Instructions / Follow-Up Instructions / Follow-Up You were admitted to the hospital after an MRI of your brain confirmed a new small stroke. You were monitored on telemetry which did not reveal any abnormal heart rhythms during your stay. An echocardiogram, or ultrasound of the heart was obtained, which was largely normal. Neurology evaluated you and recommended that you wear a 30 day Holter event monitor as an outpatient to further evaluate if you are experiencing any abnormal heart rhythms that may increase your risk for stroke. This will be set up through your microcomputer support specialist and should be covered through your insurance. The hospital nurse navigator will set you up with an appointment for this. The neurologist also ordered blood tests to check if you are more prone to blood clotting. These lab tests are pending and will need to be followed up on as an outpatient with your primary care provider. You are now medically stable for discharge to home with home health services. Medications: *Please take atorvastatin (Lipitor) 40 mg by mouth daily. This is a medication to help reduce your cholesterol. *Continue your other home medications as prescribed. Follow up: *You will be scheduled to follow up with your cardiology office to set up the Holter monitor as described above. *You will also be scheduled to follow up with the neurologist, Dr. Mcclure, in 1 month for post stroke hospital follow up. *Please follow up with your primary care provider within 1 week following discharge regarding your hospital stay. Please monitor your blood pressures at home and bring these to your follow up appointment. Risk Factors for Stroke: You can reduce your chances of stroke by working with your medical provider to adopt a healthy lifestyle. Some specific ways to lower your chance of stroke are: * If you are a smoker, now is the time to stop smoking cigarettes * If you are diabetic, improve the control of your blood sugars * Avoid excessive amounts of alcohol * Control high blood pressure * Lose weight if you are overweight * Be sure to lead an active lifestyle * Eat a healthy diet low in salt, cholesterol and fat You should know about other risk factors for stroke that you are unable to control. These include: * Age 55 years or older * Male gender * Certain racial groups: , or / * Family History of Stroke, Mini stroke or Heart Attack * Sickle Cell Disease Follow Up: It is important for you to keep your follow up appointments with your medical provider. Current Hospital Diet Patient's current hospital diet: AHA Diet (Heart Healthy) Discharge Diet Recommended Diet: AHA Diet (Heart Healthy) Procedures Procedures Performed: Echocardiogram Pending Studies Studies pending at discharge: yes List of pending studies: Beta-2 glycoprotein, anticardiolipin antibodies, homocystine, Lupus anticoagulant Laboratory Results Hemoglobin A1c Test 01/06/17 12:05 Range/Units Estimated Average Glucose 114 mg/dl Hemoglobin A1c 5.6 4.5-5.6 % Lipid Panel Test 01/07/17 05:57 Range/Units Triglycerides Level 220 H 0-150 mg/dl Cholesterol Level 206 H 0-200 mg/dl HDL Cholesterol 27 mg/dl Cholesterol/HDL Ratio 7.6 LDL Cholesterol, Calculated 135 mg/dl Medical Emergencies . Who to Call and When: Medical Emergencies: Call 911 immediately if you experience any of the following warning signs and symptoms of Stroke: * Sudden numbness or weakness of the face, arm or leg, especially on one side of the body * Sudden confusion, trouble speaking or understanding * Sudden trouble seeing in one or both eyes * Sudden trouble walking, dizziness, loss of balance or coordination * Sudden severe headache with no cause Do not delay calling 911 if you experience any warning signs or symptoms of a stroke. Delay in seeking medical attention may affect what treatments can be given to you. . Non-Emergent Contact Non-Emergency issues call your: Primary Care Provider, [place], Neurologist Call Non-Emergent contact if: you have a fever, you have any medication questions . Past History Medical & Surgical History: (1) CVA (cerebral vascular accident) . "Provider Documentation" section prepared by Svetlana Connell. . Surgery Manager Recommendations Surgery Manager Recommendations: Stroke risk factor modifications and recommendations: *Blood pressure recommendations for the first month post hospital discharge 150/ 90-130/80, and after that blood pressure recommendations 130/80-110/70 *Total cholesterol goal 100- 200 and LDL goal less than 100 *Hemoglobin A1c goal less than 7, currently at goal *Encourage cardiovascular exercise at least 3 times a week for 30 minutes. *Follow-up in neurology clinic in [address] Ren or physician editorial assistant for post stroke hospital follow-up. Stroke Core Measures Reason no t-PA for Stroke: Contraindicated Reason no antithrom by day 2: Treatment not indicated Reason no antithrom at D/C: Treatment provided - N/A Reason no statin at D/C: Treatment provided - N/A Reason no anticoag w/a fib: Treatment not indicated VTE Core Measure Inpt VTE Proph given/why not?: SCD's
[2017-01-08 11:54] VITALS: BP 175/76; PULSE 58; TEMP 36.6; O2SAT 99
--- NOTE | 2017-01-08 16:05 | Discharge Summary ---
Discharge Summary Date of Service Jan 08, 2017. (Svetlana Connell, DERIK) Discharge Summary Admission Date: Jan 06, 2017 at 15:10 Discharge Date: Jan 08, 2017 Discharge Disposition: Home with services Principal Diagnosis: CVA Problems/Secondary Diagnoses: (1) HTN (hypertension) Status: Chronic Immunizations: Have You Had Influenza Vaccine: No History of Tetanus Vaccine?: No History of Pneumococcal: No History of Hepatitis B Vaccine: No Procedures: Echocardiogram: Interpretation Summary * Name: MATTIE BENJAMIN Study Date: 01/07/2017 06:43 AM BP: 135/73 mmHg * Patient Location: 2\S\E215\S\1 HR: 60 * : 1955 (M/d/yyy) Gender: Female Height: 62 in * Age: 61 yrs Ethnicity: CA Weight: 149 lb * Ordering Physician: Selvin Silver * Referring Physician: Self, Referred * Performed By: Jagruti Torrez RCS * * Reason For Study: CEREBRAL ISCHEMIA / EMBOLUS * BSA: 1.7 m2 * -- Conclusions -- * Left ventricular systolic function is normal. * No regional wall motion abnormalities noted. * Ejection Fraction = 55-60%. * There is mild concentric left ventricular hypertrophy. * Injection of contrast documented no interatrial shunt. * There is mild mitral regurgitation. Procedure Details * A complete two-dimensional transthoracic echocardiogram was performed (2D, M- mode, Doppler and color flow Doppler). * A saline contrast injection was performed to assess for cardiac shunting. * The injection was performed through an intravenous line in the right arm. * The attending nurse who injected the saline contrast was ROBERT SANCHEZ, RN. * A total of 20 cc of agitated saline was given. Left Ventricle * The left ventricle is normal in size. * There is mild concentric left ventricular hypertrophy. * Left ventricular systolic function is normal. * Ejection Fraction = 55-60%. * No regional wall motion abnormalities noted. Right Ventricle * The right ventricle is grossly normal size. * The right ventricular systolic function is normal as assessed by tricuspid annular plane systolic excursion (TAPSE) (normal >1.5 cm). Atria * The left atrium is mildly dilated. * Right atrial size is normal. * Injection of contrast documented no interatrial shunt. * Lipomatous hypertrophy of the interatrial septum is noted. Mitral Valve * The mitral valve is grossly normal. * There is no mitral valve stenosis. * There is mild mitral regurgitation. Tricuspid Valve * The tricuspid valve is not well visualized, but is grossly normal. * There is no tricuspid stenosis. * Significant tricuspid regurgitation is absent. Aortic Valve * The aortic valve is normal in structure and function. * No hemodynamically significant valvular aortic stenosis. * There is no significant aortic regurgitation. Pulmonic Valve * The pulmonary valve is not well seen, but the Doppler examination is normal without significant regurgitation or stenosis. Great Vessels * The aortic root is normal size. * The pulmonary artery is not well visualized, but is probably normal size. Pericardium/Pleural * There is no pericardial effusion. Great Vessels * Normal inferior vena cava size and collapsability with sniff indicates a normal right atrial pressure of 3 mmHg Consultations: Neurology--Dr. Mcclure (Svetlana Connell ., PA-C) Medication Reconciliation New Medications: Atorvastatin (Atorvastatin Calcium) 40 Mg Tab 40 MG PO QAM for 30 Days, #30 TAB Continued Medications: Alprazolam (Xanax) 0.5 Mg Tab 0.5 MG PO TID, TAB Aspirin (Aspirin Ec) 81 Mg Tab 81 MG PO DAILY Glimepiride (Glimepiride) 2 Mg Tab 1.5 TAB PO DAILY for 90 Days, #135 TAB 3 Refills Losartan Potassium (Cozaar) 50 Mg Tab 50 MG PO DAILY, TAB Metoprolol Tartrate (Lopressor) (Lopressor) 50 Mg Tab 50 MG PO BID, TAB Prasugrel Hcl (Effient) 10 Mg Tab 10 MG PO DAILY, TAB Referrals At Discharge Follow up Referrals: Family Practice Referral - Within 1 Week with Edi Castellanos M.D. Discharge Exam Patient reports feeling weak. She states she has been getting progressively more weak over the last few months in part due to her significant peripheral artery disease. The patient complained of a headache this morning but this resolved with Tylenol. The patient states that she feels somewhat short of breath and wheezy. The patient denies fevers, chills, sweats, chest pain, palpitations, claudication, cough, nausea, vomiting, abdominal pain, dysuria, hematuria, urinary retention, paralysis, motor weakness, numbness and tingling. Review of Systems: Constitutional: + weakness, + fatigue, No fever, No chills, No sweats Eyes: No worsening of vision, No eye pain, No diplopia ENT: No hearing loss, No sore throat, No trouble swallowing Respiratory: + wheezing, + shortness of breath, No cough Cardiovascular: No chest pain, No claudication, No palpitations Abdomen: No pain, No nausea, No vomiting Musculoskeletal: No joint pain, No muscle pain, No calf pain Genitourinary - Female: No dysuria, No urinary retention, No hematuria Neurologic: No paralysis, No weakness, No numbness/tingling Integumentary: No rash, No itch, No color change Physical Exam: General Appearance: WD/WN, no apparent distress Eyes: normal inspection, PERRL, EOMI ENT: normal ENT inspection, hearing grossly normal, pharynx normal, + muffled/hoarse voice (chronic) Neck: supple, no JVD, trachea midline Respiratory/Chest: lungs clear, no respiratory distress, + decreased breath sounds Cardiovascular: regular rate, rhythm, no gallop, no murmur Abdomen / GI: normal bowel sounds, non tender, soft Extremities: normal inspection, no calf tenderness, no pedal edema Neurologic/Psychiatric: alert, normal mood/affect, oriented x 3 Skin: normal color, warm/dry, no rash (Svetlana Connell ., PAMariposaC) Hospital Course 61 y/o female with a history of HTN, HLD, CAD and h/o CT, DM II, CKD stage III, and anxiety who presented to the ED on 01/06 with increased generalized weakness x 1 day and fatigue, nausea, abdominal discomfort, and diarrhea x 3 days. Subacute CVA of left putamen, CAD, h/o CT, HTN, HLD--stable -Admit to telemetry. No acute events overnight. Pt in sinus bradycardia with HR in 40s-50s -Stroke protocol -CT of the head demonstrated old strokes in the right caudate and thalamus, and questioned new strokes in the left thalamus and central kendra. -MRI of the brain confirmed a subacute left putamen CVA and reconfirmed old strokes. -Continue ASA and Effient 10 mg PO qd, metoprolol tartrate 50 mg PO BID, and losartan 50 mg PO qd -Consult neurology, appreciate recs: Ordered beta-2 glycoprotein, anticardiolipin antibodies, homocystine and Lupus anticoagulant, follow up as an outpatient. Recommend further evaluation of possible paroxysmal a-fib with 30 day Holter event monitor. -Order to Nurse Navigator to set pt up with cardiology and Holter monitor -Allow for permissive hypertension, with Lopressor 5 mg IV or hydralazine 10 mg IV q4h prn SBP> 180 -Lipid panel: LDL 135, total cholesterol 206, triglycerides 220. -Atorvastatin 40 mg PO qd -HgbA1c 5.6 on 01/06 -Echocardiogram shows LVEF of 55-60%, no wall motion abnormalities, no interatrial shunt -PT/OT evaluate and treat DM II--A1c as above -Hold glimepiride, resume on discharge -Insulin sliding scale -Check BSGs q ac and qhs Peripheral artery disease -Pt reports 70% stenosis in LLE and 100% stenosis RLE, follows up at [facility] [place] CKD stage III--baseline creatinine 1.5 -Creatinine 1.7 on discharge Hoarse voice--chronic, stable. Pt follows with ENT Anxiety -Continue Xanax 0.5 mg PO TID prn Dispo -Pt lives with , daughter close by -OT recommended home with home health. PT rec rehab. Pt refuses rehab but agreeable to home health services Total Time Spent: Greater than 30 minutes This includes examination of the patient, discharge planning, medication reconciliation, and communication with other providers. (Svetlana Connell ., PA-C) I agree with PA assessment and plan and have seen and examined pt myself Resting comfortably in bed States mild STOKES Noted permissive HTN during hospital course No need for AC on DC Consider holter monitor as OP (Jalen Lee D.O.) Discharge Instructions Please refer to the electronic Patient Visit Report (Discharge Instructions) for additional information. (Svetlana Connell ., PA-C) Additional Copies To Edi Castellanos M.D.
[2017-01-11 22:31] LABS: B2 GLYCOPROTEIN IGA <9 SAU (<=20); B2 GLYCOPROTEIN IGG <9 SGU (<=20); B2 GLYCOPROTEIN IGM <9 SMU (<=20); LUPUS ANTICOAGULANT** TC36573X Negative (Negative)
== END 2017-01-08 12:30 | disposition home health service (06) | DRG 66 ==
LOC: EDBD 11:58 → C.EDB 12:01 → C.2T 15:10 → ENRESERV 15:15
PROVIDERS: ADMIT Hospitalist; ATTEND Hospitalist
DX: I63.8 Other cerebral infarction (principal); I12.9 Hypertensive chronic kidney disease with stage 1 through stage 4 chronic kidney disease, or unspecified chronic kidney disease; E11.22 Type 2 diabetes mellitus with diabetic chronic kidney disease; N18.3 Chronic kidney disease, stage 3 (moderate); K21.9 Gastro-esophageal reflux disease without esophagitis; I25.2 Old myocardial infarction; F41.9 Anxiety disorder, unspecified; F17.200 Nicotine dependence, unspecified, uncomplicated; Z79.82 Long term (current) use of aspirin; Z79.899 Other long term (current) drug therapy; Z86.73 Personal history of transient ischemic attack (TIA), and cerebral infarction without residual deficits; Z83.3 Family history of diabetes mellitus

== ENCOUNTER → 2017-06-12 | Outpatient (CLI) | payer OTHER ==
[~2017-06-12] MED LIST changes: -BETA0.053 TOP; -CRS/10 PO; -GABA-112 PO; -KETOROLAC TROMETHAMINE 30 MG/ML VIAL IV STA; +LPT40 PO; -NTRGSL/4 UT; -OMEP40CA PO; -ONDANSETRON INJ 2 MG/ML 2 ML VIAL IV STA; +PRAS1TAB6 PO; -SODIUM CHLORIDE 0.9% 1000ML 1,000 ML IV STA
[2017-06-12 13:27] LABS: BASO % 0.3 %; BASO ABS # 0.03 K/uL (0-0.2); EOS % 1.6 %; EOS ABS # 0.19 K/uL (0-0.5); HEMATOCRIT 42.4 % (37-47); HEMOGLOBIN 14.3 g/dL (12.0-16.0); IG# 0.03 K/uL (0.00-0.02); LYMPH % 18.3 %; LYMPH ABS # 2.16 K/uL (1.2-3.4); MEAN CELL VOLUME 92.4 fL (80-100); MEAN CORPUSCULAR HEMOGLOBIN 31.2 pg (25-34); MEAN CORPUSCULAR HGB CONC 33.7 g/dl (32-36); MEAN PLATELET VOLUME 11.4 fL (7.4-10.4); MONO % 3.7 %; MONO ABS # 0.44 K/uL (0.11-0.59); NEUT % 75.8 %; NEUT ABS # 8.97 K/uL (1.4-6.5); PLATELET COUNT 226 K/uL (130-400); RED CELL DISTRIBUTION WIDTH CV 13.9 % (11.5-14.5); RED CELL DISTRIBUTION WIDTH SD 46.5 fL (36.4-46.3); WHITE BLOOD COUNT 11.82 K/uL (4.8-10.8)
[2017-06-12 18:28] LABS: ALBUMIN 3.8 gm/dl (3.4-5.0); BLOOD UREA NITROGEN 25 mg/dl (7-18); CALCIUM 9.5 mg/dl (8.5-10.1); CARBON DIOXIDE 25 mmol/L (21-32); CREATININE 1.72 mg/dl (0.60-1.20); GLUCOSE 120 mg/dl (70-99); PHOSPHORUS 2.9 mg/dl (2.5-4.9); POTASSIUM 3.5 mmol/L (3.5-5.1); SODIUM 137 mmol/L (136-145)
== END | disposition home or self-care (01) ==
LOC: C.LABBFT 11:02
PROVIDERS: ATTEND Internal Medicine Nephrology
DX: I12.9 Hypertensive chronic kidney disease with stage 1 through stage 4 chronic kidney disease, or unspecified chronic kidney disease (principal); E11.22 Type 2 diabetes mellitus with diabetic chronic kidney disease; N18.3 Chronic kidney disease, stage 3 (moderate); E78.5 Hyperlipidemia, unspecified; D72.829 Elevated white blood cell count, unspecified

== ENCOUNTER → 2017-12-26 | Outpatient (CLI) | payer OTHER ==
[2017-12-26 16:52] LABS: BASO % 0.6 %; BASO ABS # 0.07 K/uL (0-0.2); EOS ABS # 0.24 K/uL (0-0.5); HEMATOCRIT 42.5 % (37-47); HEMOGLOBIN 14.1 g/dL (12.0-16.0); IG# 0.03 K/uL (0.00-0.02); LYMPH % 23.5 %; LYMPH ABS # 2.88 K/uL (1.2-3.4); MEAN CELL VOLUME 90.4 fL (80-100); MEAN CORPUSCULAR HGB CONC 33.2 g/dl (32-36); MEAN PLATELET VOLUME 11.5 fL (7.4-10.4); MONO % 3.2 %; MONO ABS # 0.39 K/uL (0.11-0.59); NEUT % 70.5 %; NEUT ABS # 8.65 K/uL (1.4-6.5); PLATELET COUNT 243 K/uL (130-400); RED CELL DISTRIBUTION WIDTH CV 14.6 % (11.5-14.5); RED CELL DISTRIBUTION WIDTH SD 48.2 fL (36.4-46.3); WHITE BLOOD COUNT 12.26 K/uL (4.8-10.8)
[2017-12-26 17:17] LABS: ALBUMIN 3.7 gm/dl (3.4-5.0); ALKALINE PHOSPHATASE 108 U/L (45-117); ALT/SGPT 20 U/L (12-78); AST/SGOT 15 U/L (15-37); BLOOD UREA NITROGEN 23 mg/dl (7-18); CALCIUM 9.1 mg/dl (8.5-10.1); CARBON DIOXIDE 28 mmol/L (21-32); CHOLESTEROL 243 mg/dl (0-200); CREATININE 1.64 mg/dl (0.60-1.20); GLUCOSE 114 mg/dl (70-99); POTASSIUM 4.5 mmol/L (3.5-5.1); SODIUM 140 mmol/L (136-145)
[2017-12-27 06:05] LABS: HEMOGLOBIN A1C 6.6 % (4.5-5.6)
== END | disposition home or self-care (01) ==
LOC: C.LABBC 14:05
PROVIDERS: ATTEND Internal Medicine Geriatric Medicine
DX: I12.9 Hypertensive chronic kidney disease with stage 1 through stage 4 chronic kidney disease, or unspecified chronic kidney disease (principal); E11.22 Type 2 diabetes mellitus with diabetic chronic kidney disease; N18.3 Chronic kidney disease, stage 3 (moderate); I25.10 Atherosclerotic heart disease of native coronary artery without angina pectoris; E78.5 Hyperlipidemia, unspecified

== ENCOUNTER 2020-03-22 21:38 | Observation (INO) ==
[2020-03-22 22:58] LABS: Troponin I 0.018 ng/ml (0-0.045)
--- NOTE | 2020-03-22 22:58 | Emergency Department Note ---
History of Present Illness General Chief complaint: Chest Pain Stated complaint: CHEST PAIN Time Seen by Provider: 03/22/20 22:22 History of Present Illness This is a 64-year-old female that presents to the emergency department via ambulance with complaints of "chest pain". The patient notes that this evening between the hours of 4:30PM and 5 PM she was eating spaghetti with sauce. No meatballs. She notes that she laid down to take a nap and then awoke around 7/8 PM and had chest pain. It was substernal in nature. 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 She believes that she has stents. No history of open heart surgery. The patient believes that the discomfort lasted for more than minutes but likely less than 1 hour. She notes that her daughter was concerned and called the ambulance therefore bringing the patient here. Patient denies any pain at this time. She denies any shortness of breath. She believes that this is likely related to stress. No fevers, chills, nausea, vomiting, cough. Home Medications Medication Instructions Recorded Confirmed Type aspirin 81 mg tablet 81 mg PO DAILY #30 tab 12/10/18 03/22/20 History nitroglycerin 0.4 mg sublingual 0.4 mg SL Q5M PRN tab 01/28/19 03/22/20 History tablet blood sugar diagnostic #100 ea 07/24/19 01/13/20 Rx glimepiride 2 mg tablet 1 mg PO DAILY PRN #45 tab 07/24/19 03/22/20 Rx triamcinolone acetonide 0.1 % 1 appln TOP BID PRN #80 gm 09/25/19 03/22/20 Rx topical cream amlodipine 5 mg tablet 5 mg PO DAILY PRN #90 tab 12/02/19 03/22/20 Rx losartan 50 mg tablet 50 mg PO BID #180 tab 12/02/19 03/22/20 Rx metoprolol tartrate 50 mg tablet 50 mg PO BID #180 tab 12/02/19 03/22/20 Rx prasugrel 10 mg tablet 10 mg PO DAILY #90 tab 12/02/19 03/22/20 Rx alprazolam 0.5 mg tablet 0.5 mg PO TID PRN #90 tab 03/01/20 03/22/20 Rx cholecalciferol (vitamin D3) 50 mcg PO DAILY 03/22/20 03/22/20 History Allergies Allergy/AdvReac Type Severity Reaction Status Date / Time citalopram [From Celexa] Allergy Unknown Verified 03/22/20 22:55 lisinopril [From Prinivil] Allergy Unknown Verified 03/22/20 22:55 moxifloxacin [From Avelox] Allergy Unknown Verified 03/22/20 22:55 nitrofurantoin Allergy Unknown Verified 03/22/20 22:55 [From Macrobid] sulfamethoxazole Allergy Unknown Verified 03/22/20 22:55 [From Bactrim] trimethoprim [From Bactrim] Allergy Unknown Verified 03/22/20 22:55 valsartan [From Diovan] Allergy Unknown Verified 03/22/20 22:55 Past Med/Surg History Medical History Anxiety Chronic kidney disease Coronary artery disease CVA (cerebral vascular accident) GERD (gastroesophageal reflux disease) Heart failure with preserved ejection fraction HTN (hypertension) Hyperlipidemia refuses statins Osteoarthritis Osteopenia Peripheral vascular disease Type 2 diabetes mellitus Surgical History History of coronary artery stent placement History of laryngoscopy Total knee replacement status Family History Sister Breast cancer Mother Myocardial infarction Father Myocardial infarction Diabetes Denies family history of Colon cancer Ovarian cancer Prostate cancer Colorectal cancer Social History Smoking Status: Never smoker Hx Alcohol Use: No Hx Substance Use: No Preferred Language: Trinidadian Communication Ability: Effective Visual Impairment: No Limitations Hearing Ability: Normal Stucco Plasterer Required: Yes Beliefs That Will Affect Care: None marital status: / Current Living Situation: Family current occupational status: retired Feels Safe at Home: Yes Safety Concerns: Feels Safe At This Time Dental Care, Regularly: Yes Physical Activity Frequency: Does not Exercise Seatbelt Use: always Sunscreen Use: Yes Assistive Devices: Cane Review of Systems A total of 10 systems reviewed and were otherwise negative Physical Exam Vital Signs Vital Signs - 24 hr 03/22/20 21:50 03/22/20 21:56 03/22/20 22:37 Temperature 36.8 C Temperature Source Oral Pulse Rate 56 L Pulse Rate [Right Finger] Pulse Rhythm Regular Pulse Rhythm [Right Finger] Pulse Strength Normal Pulse Strength [Right Finger] Respiratory Rate 20 Respiratory Effort / Characteristics Non-Labored Respiratory Depth Normal Respiratory Pattern Regular Blood Pressure 160/71 H Blood Pressure [Right Arm] Blood Pressure Mean 100 Blood Pressure Mean [Right Arm] Blood Pressure Position Sitting Pulse Oximetry 94 Oxygen Delivery Method Room Air Room Air Room Air Sepsis Recent Fever Within 48 Hours No Sepsis New/Unexplained Change in Mental Status No Sepsis Action Taken by Nursing No Action Required 03/22/20 23:34 03/23/20 01:21 Temperature Temperature Source Pulse Rate Pulse Rate [Right Finger] 51 L 55 L Pulse Rhythm Pulse Rhythm [Right Finger] Regular Pulse Strength Pulse Strength [Right Finger] Normal Respiratory Rate 20 20 Respiratory Effort / Characteristics Non-Labored Spontaneous Respiratory Depth Normal Respiratory Pattern Blood Pressure Blood Pressure [Right Arm] 134/75 170/69 H Blood Pressure Mean Blood Pressure Mean [Right Arm] 94 102 Blood Pressure Position Pulse Oximetry 98 Oxygen Delivery Method Room Air Sepsis Recent Fever Within 48 Hours Sepsis New/Unexplained Change in Mental Status Sepsis Action Taken by Nursing VITAL SIGNS - Vital signs and nursing notes were reviewed. Stable and afebrile. GENERAL - 64-year-old female appearing her stated age who is in no acute distress. Communicates well with provider and answers questions appropriately. SKIN - Without rashes. HEAD - NC/AT. EYES - Sclera anicteric. LUNGS - Chest wall symmetric without accessory muscle use, intercostals retractions, or central cyanosis. Normal vesicular breath sounds CTA B/L. No wheezes, rales, or rhonchi appreciated. CARDIAC - RRR with S1/S2. No murmur, rubs, or gallops appreciated. ABDOMEN - Abdominal contour normal without pulsations or visible masses. BS normoactive all four quadrants. No tenderness, palpable masses, hepatosplenomegaly, or ascites noted. EXTREMITIES - No clubbing or peripheral cyanosis. No pretibial edema present. +5/5 strength noted in UE/LE bilaterally. NEUROLOGIC - Cranial nerves II through XII grossly intact. PSYCH - A&O, and cooperates fully with examiner. Pt is very pleasant and interacts well with examiner. Course Administered Medications Aspirin (Aspirin 81 Mg Ectab) 81 mg PO DAILY MARIANO Stop: 04/22/20 08:59 Last Admin: 03/23/20 07:44 Dose: 81 mg Documented by: [id number] Insulin Aspart (Insulin Aspart 100 Units/Ml 3 Ml Pen) 0 units SC Q6 [facility]; Protocol Stop: 04/22/20 05:59 Last Admin: 03/23/20 12:44 Dose: Not Given Documented by: [id number] Cosigned by: [id number] Admin: 03/23/20 05:16 Dose: Not Given Documented by: [id number] Cosigned by: [id number] Losartan Potassium (Losartan Potassium 50 Mg Tab) 50 mg PO BID MARIANO Stop: 04/22/20 08:59 Last Admin: 03/23/20 07:45 Dose: 50 mg Documented by: [id number] Metoprolol Tartrate (Metoprolol Tartrate 50 Mg Tab) 50 mg PO BID MARIANO Stop: 04/22/20 08:59 Last Admin: 03/23/20 07:44 Dose: 50 mg Documented by: [id number] Prasugrel (Prasugrel Tab 10 Mg Tab) 10 mg PO DAILY MARIANO Stop: 04/22/20 08:59 Last Admin: 03/23/20 07:44 Dose: 10 mg Documented by: [id number] Vitamin D (Cholecalciferol 1,000 Units 25 Mcg Tab) 1,000 units PO DAILY MARIANO Stop: 04/22/20 08:59 Last Admin: 03/23/20 07:44 Dose: 1,000 units Documented by: [id number] Discontinued Medications Alprazolam (Alprazolam 0.5 Mg Tablet) 0.5 mg PO NOW STA Stop: 03/23/20 03:33 Last Admin: 03/23/20 04:59 Dose: Not Given Documented by: [id number] Atropine Sulfate (Atropine Sulfate 0.1 Mg/Ml 10ml Syr) Confirm Administered Dose 2 mg IV .STK-MED ONE Stop: 03/23/20 11:32 Last Admin: 03/23/20 11:57 Dose: 2 mg Documented by: [id number] Dobutamine HCl (Dobutamine Hcl 12.5 Mg/Ml 20 Ml Vial) Confirm Administered Dose 250 mg IV .STK-MED ONE Stop: 03/23/20 11:33 Last Admin: 03/23/20 12:26 Dose: 50 mg.per.kg Documented by: [id number] Sodium Chloride (Nss 1000ml) 1,000 mls @ 80 mls/hr IV .[id number] MARIANO Stop: 03/23/20 16:17 Last Infusion: 03/23/20 11:34 Dose: 0 mls/hr Documented by: [id number] Admin: 03/23/20 05:16 Dose: 80 mls/hr Documented by: [id number] Metoprolol Tartrate (Metoprolol Tartrate 1 Mg/Ml Vial) Confirm Administered Dose 10 mg IV .STK-MED ONE Stop: 03/23/20 11:32 Last Admin: 03/23/20 12:05 Dose: 10 mg Documented by: [id number] Perflutren Lipid Microsphere (Perflutren Lipid Microsphere (Definity)) 2 ml IV ONCE ONE Stop: 03/23/20 12:25 Last Admin: 03/23/20 12:25 Dose: 2 ml Documented by: [id number] Medical Decision Making Laboratory Data Result diagrams: 03/23/20 05:25 03/23/20 05:24 Lab Results 03/22/20 03/22/20 03/22/20 Range/Units 22:05 22:05 22:40 WBC 12.44 H (4.8-10.8) K/uL RBC 4.67 (4.2-5.4) M/uL Hgb 14.3 (12.0-16.0) g/dL Hct 43.1 (37-47) % MCV 92.3 (80-100) fL MCH 30.6 (25-34) pg MCHC 33.2 (32-36) g/dL RDW Std Deviation 50.2 H (36.4-46.3) fL RDW Coeff of Jerry 14.8 H (11.5-14.5) % Plt Count 223 (130-400) K/uL MPV 12.1 H (7.4-10.4) fL Immature Gran % (Auto) 0.3 % Neut % (Auto) 71.1 % Lymph % (Auto) 22.4 % Cherry % (Auto) 3.6 % Eos % (Auto) 2.4 % Baso % (Auto) 0.2 % Neut # (Auto) 8.83 H (1.4-6.5) K/uL Lymph # (Auto) 2.79 (1.2-3.4) K/uL Cherry # (Auto) 0.45 (0.11-0.59) K/uL Eos # (Auto) 0.30 (0-0.5) K/uL Baso # (Auto) 0.03 (0-0.2) K/uL Immature Gran # (Auto) 0.04 H (0.00-0.02) K/uL PT 10.2 (9.0-12.0) Seconds INR 1.0 (0.9-1.1) APTT 27.1 (21.0-31.0) Seconds PTT Ratio 1.0 Sodium 141 (136-145) mmol/L Potassium 4.2 (3.5-5.1) mmol/L Chloride 110 H (98-107) mmol/L Carbon Dioxide 25 (21-32) mmol/L Anion Gap 6.0 (3-11) BUN 18 (7-18) mg/dl Creatinine 1.86 H (0.6-1.2) mg/dl Est Cr Clr Drug Dosing 28.1 ml/min Est GFR ( Amer) 32.6 Est GFR (Non-Af Amer) 28.1 BUN/Creatinine Ratio 9.8 L (10-20) Glucose 119 H (70-99) mg/dl Calcium 9.4 (8.5-10.1) mg/dl Total Bilirubin 0.3 (0.2-1) mg/dl AST 11 L (15-37) U/L ALT 16 (12-78) U/L Alkaline Phosphatase 115 (45-117) U/L Troponin I 0.018 (0-0.045) ng/ml Total Protein 8.0 (6.4-8.2) gm/dl Albumin 3.6 (3.4-5.0) gm/dl Globulin 4.4 H (2.5-4.0) gm/dl Albumin/Globulin Ratio 0.8 L (0.9-2) Lipase 199 (73-393) U/L COVID-19 Eval Order SARS-CoV-2, RNA, NAAT (NEGATIVE) 03/23/20 03/23/20 Range/Units 01:13 01:13 WBC (4.8-10.8) K/uL RBC (4.2-5.4) M/uL Hgb (12.0-16.0) g/dL Hct (37-47) % MCV (80-100) fL MCH (25-34) pg MCHC (32-36) g/dL RDW Std Deviation (36.4-46.3) fL RDW Coeff of Jerry (11.5-14.5) % Plt Count (130-400) K/uL MPV (7.4-10.4) fL Immature Gran % (Auto) % Neut % (Auto) % Lymph % (Auto) % Cherry % (Auto) % Eos % (Auto) % Baso % (Auto) % Neut # (Auto) (1.4-6.5) K/uL Lymph # (Auto) (1.2-3.4) K/uL Cherry # (Auto) (0.11-0.59) K/uL Eos # (Auto) (0-0.5) K/uL Baso # (Auto) (0-0.2) K/uL Immature Gran # (Auto) (0.00-0.02) K/uL PT (9.0-12.0) Seconds INR (0.9-1.1) APTT (21.0-31.0) Seconds PTT Ratio Sodium (136-145) mmol/L Potassium (3.5-5.1) mmol/L Chloride (98-107) mmol/L Carbon Dioxide (21-32) mmol/L Anion Gap (3-11) BUN (7-18) mg/dl Creatinine (0.6-1.2) mg/dl Est Cr Clr Drug Dosing ml/min Est GFR ( Amer) Est GFR (Non-Af Amer) BUN/Creatinine Ratio (10-20) Glucose (70-99) mg/dl Calcium (8.5-10.1) mg/dl Total Bilirubin (0.2-1) mg/dl AST (15-37) U/L ALT (12-78) U/L Alkaline Phosphatase (45-117) U/L Troponin I (0-0.045) ng/ml Total Protein (6.4-8.2) gm/dl Albumin (3.4-5.0) gm/dl Globulin (2.5-4.0) gm/dl Albumin/Globulin Ratio (0.9-2) Lipase (73-393) U/L COVID-19 Eval [facility] SARS-[facility]-2, RNA, NAAT NEGATIVE (NEGATIVE) Imaging Data My Impression: Chest x-ray one-view portable: Per my interpretation there is chronic change which is stable. No acute process. MDM Narrative Patient was seen and evaluated as above in room C09. Review was performed of nursing notes and vital signs. I did review pertinent previous visits and patient history. After obtaining a thorough history and physical examination the above work up was performed. Patient presents to us today via ambulance with complaints of chest pain. This has resolved on arrival. She did receive 4 baby aspirin prior to arrival. Patient does not believe that she had a nitroglycerin. Patient is nontoxic on examination. Labs were drawn. Mild leukocytosis 12.44 without anemia. No emergent metabolic disturbance. Mild OMAR 1.86. Troponin 0 0.018. Covid testing negative per protocol prior to being inpatient. Chest x-ray per my interpretation reveals chronic change but no acute process. Patient's heart score is 4. Patient has a history of 3 MIs in the past. Although this certainly could be related to patient's dinner this evening it is felt that she is high risk for cardiac events and further inpatient management would be warranted. I recommended this to the patient. Patient noted that she was worried about getting Covid here. I discussed thoroughly with the patient at bedside benefit versus risk of inpatient management. Patient was not sure if she wanted to stay or go home. Then I received a phone call from the patient's daughter noting that the patient had reached out to her. I did gain consent to speak with the patient's daughter from the patient. I answered all questions. Patient then was agreeable to stay for further evaluation. Please refer to further documentation regarding her stay. Case was discussed with the attending physician. EKG was reviewed by myself and found to be sinus bradycardia at a rate of 59 beats per minute and per my interpretation reveals no ectopy or ischemic change. QTc 413. An order was placed for continuous cardiac monitoring. The monitor shows a rate of 59 with sinus bradycardia rhythm. I attest that I have personally reviewed the patient medication list. GCS: 15 In the evaluation and treatment of this patient, the following differential diagnoses were considered: WI, ASC, Dysrhythmia, Angina, Mediastinitis, GERD, Esophagitis, PE, Pneumonia, Bronchitis, Costochondritis, Rib Fracture, Zoster. Attending Attestation: I Cachorro Bauer MD independently saw and evaluated this patient and agree with history and physical is otherwise documented by the physician physicians assistant. See their note for full details. Patient resting in bed in no respiratory distress and not tachypneic, speaking in full sentences and has some concerns about covid (predominantly possibly catching it in the hospital) and swab is being sent. Patient was agreeable for further observation given cardiac hx. Impression & Plan Chest pain Discharge Plan Visit Data Chief Complaint: Chest Pain Stated Complaint: CHEST PAIN ED Provider: Cachorro Bauer ED Midlevel Provider: Chad Kraus Discharge Problem: Chest pain Patient Disposition: Admitted As Inpatient Condition: Good Discharge Instructions Interventions: ED Discharge Assessment Last Done: 03/23/20 03:30
[2020-03-22 23:00] LABS: Partial Thromboplastin Time 27.1 Seconds (21.0-31.0); Prothrombin Time 10.2 Seconds (9.0-12.0)
[2020-03-22 23:49] LABS: Basophils # (auto) 0.03 K/uL (0-0.2); Basophils % (auto) 0.2 %; Eosinophils % (auto) 2.4 %; Hematocrit (blood only) 43.1 % (37-47); Hemoglobin 14.3 g/dL (12.0-16.0); Immature Granulocytes # (auto) 0.04 K/uL (0.00-0.02); Immature Granulocytes % (auto) 0.3 %; Lymphocytes # (auto) 2.79 K/uL (1.2-3.4); Lymphocytes % (auto) 22.4 %; Mean Corpuscular Hemoglobin 30.6 pg (25-34); Mean Corpuscular Hgb Conc 33.2 g/dL (32-36); Mean Corpuscular Volume 92.3 fL (80-100); Mean Platelet Volume 12.1 fL (7.4-10.4); Monocytes # (auto) 0.45 K/uL (0.11-0.59); Monocytes % (auto) 3.6 %; Neutrophils # (auto) 8.83 K/uL (1.4-6.5); Neutrophils % (auto) 71.1 %; Platelet Count 223 K/uL (130-400); RDW Coefficient of Variation 14.8 % (11.5-14.5); RDW Standard Deviation 50.2 fL (36.4-46.3); Red Blood Count 4.67 M/uL (4.2-5.4); White Blood Count 12.44 K/uL (4.8-10.8)
[2020-03-22 23:51] LABS: Albumin Level 3.6 gm/dl (3.4-5.0); BUN Creatinine Ratio 9.8 (10-20); Calcium 9.4 mg/dl (8.5-10.1); Creatinine Clr Calc Pharmacy 28.1 ml/min; Est GFR (African American) 32.6; Est GFR (Non-African American) 28.1; Potassium 4.2 mmol/L (3.5-5.1)
[2020-03-22 23:55] LABS: Albumin Globulin Ratio 0.8 (0.9-2); Bilirubin,Total 0.3 mg/dl (0.2-1); Globulin 4.4 gm/dl (2.5-4.0)
--- NOTE | 2020-03-23 03:18 | History & Physical Report ---
Date of Service March 23, 2020 Assessment & Plan (1) Anxiety: Pt is a 64yo with a PMHx significant for CAD s/p stent placement in LAD, HTN, HLD, DMII, HFpEF, CKD, Hx of CVA and anxiety who was admitted for ACS rule- out. ACS rule-out -pt states her chest pain started "after supper" -Hx of STEMI in 2016, with LAD stent placement -Risk factors including DMII, Hx of tobacco abuse, HTN, HLD -EKG with sinus bradycardia, HR of 59, qtc of 413 -trop of 0.018, will trend q6h -Echo pending -will admit to med/surg with tele for continuous cardiac monitoring -consult cardiology CAD -Hx of STEMI in 2016, with LAD stent placement, after stenoses now has bare metal stent -continue home metoprolol tartrate 50mg BID -continue home prasugrel 10mg daily, aspirin daily HTN/HFpEF -continue home amlodipine 5mg PRN, losartan 50mg BID and metoprolol tartrate 50mg BID HLD -refuses a statin CKD -Cr of 1.86 on admission -Baseline approximately 1.9 -will give gentle fluids Hx of CVA -continue prasugrel as above DMII -hold home PRN glimepride 2mg -ISS while hospitalized -pharm glycemic consult Anxiety -continue home ativan 0.5mg TID prn FEN/GI: NPO for possible stress testing DVT prophylaxis: On prasugrel, aspirin, SCDs CODE STATUS: pt refuses to state. will assume full code until it can be determined Dispo: Med/surg with tele (2) GERD (gastroesophageal reflux disease): (3) Type 2 diabetes mellitus: (4) CVA (cerebral vascular accident): (5) HTN (hypertension): (6) Hyperlipidemia: (7) Peripheral vascular disease: (8) Chronic kidney disease: (9) Heart failure with preserved ejection fraction: (10) Coronary artery disease: History of Present Illness Primary Care Provider: Carrie Rincon MD Pt is a 64yo with a PMHx significant for CAD s/p stent placement in LAD, HTN, HLD, DMII, HFpEF, CKD, Hx of CVA and anxiety who was admitted for ACS rule-out. Pt was uncooperative at times during the history but stated that she started having chest pain after dinner. Stated it was located in the epigastrium with no radiation. There was no associated N/V, diaphoresis, palpitations. Denies any trauma to the area. States she does not smoke currently but refused to state when she quit or for how long she smoked. Also refused to give her code status, stating "they never asked me this before." Allergies Allergy/AdvReac Type Severity Reaction Status Date / Time citalopram [From Celexa] Allergy Unknown Verified 03/22/20 22:55 lisinopril [From Prinivil] Allergy Unknown Verified 03/22/20 22:55 moxifloxacin [From Avelox] Allergy Unknown Verified 03/22/20 22:55 nitrofurantoin Allergy Unknown Verified 03/22/20 22:55 [From Macrobid] sulfamethoxazole Allergy Unknown Verified 03/22/20 22:55 [From Bactrim] trimethoprim [From Bactrim] Allergy Unknown Verified 03/22/20 22:55 valsartan [From Diovan] Allergy Unknown Verified 03/22/20 22:55 Home Medications Medication Instructions Recorded Confirmed Type aspirin 81 mg tablet 81 mg PO DAILY #30 tab 12/10/18 03/22/20 History nitroglycerin 0.4 mg sublingual 0.4 mg SL Q5M PRN tab 01/28/19 03/22/20 History tablet blood sugar diagnostic #100 ea 07/24/19 01/13/20 Rx glimepiride 2 mg tablet 1 mg PO DAILY PRN #45 tab 07/24/19 03/22/20 Rx triamcinolone acetonide 0.1 % 1 appln TOP BID PRN #80 gm 09/25/19 03/22/20 Rx topical cream amlodipine 5 mg tablet 5 mg PO DAILY PRN #90 tab 12/02/19 03/22/20 Rx losartan 50 mg tablet 50 mg PO BID #180 tab 12/02/19 03/22/20 Rx metoprolol tartrate 50 mg tablet 50 mg PO BID #180 tab 12/02/19 03/22/20 Rx prasugrel 10 mg tablet 10 mg PO DAILY #90 tab 12/02/19 03/22/20 Rx alprazolam 0.5 mg tablet 0.5 mg PO TID PRN #90 tab 03/01/20 03/22/20 Rx cholecalciferol (vitamin D3) 50 mcg PO DAILY 03/22/20 03/22/20 History Past Med/Surg History Medical History Anxiety Chronic kidney disease Coronary artery disease CVA (cerebral vascular accident) GERD (gastroesophageal reflux disease) Heart failure with preserved ejection fraction HTN (hypertension) Hyperlipidemia refuses statins Osteoarthritis Osteopenia Peripheral vascular disease Type 2 diabetes mellitus Surgical History History of coronary artery stent placement History of laryngoscopy Total knee replacement status Family History Sister Breast cancer Mother Myocardial infarction Father Myocardial infarction Diabetes Denies family history of Colon cancer Ovarian cancer Prostate cancer Colorectal cancer Social History Smoking Status: Never smoker Hx Alcohol Use: No Hx Substance Use: No Preferred Language: [place] Communication Ability: Effective Visual Impairment: No Limitations Hearing Ability: Normal Clinical Laboratory Medical Director Required: Yes Beliefs That Will Affect Care: None marital status: / Current Living Situation: Family current occupational status: retired Feels Safe at Home: Yes Safety Concerns: Feels Safe At This Time Dental Care, Regularly: Yes Physical Activity Frequency: Does not Exercise Seatbelt Use: always Sunscreen Use: Yes Assistive Devices: Cane Review of Systems Constitutional: no fever, no chills and no sweats Eyes: no worsening vision Ear, Nose, Mouth, Throat: no nasal congestion and no sore throat Respiratory: + dyspnea (due to her mask); no cough Cardiovascular: + chest pain and + dyspnea (due to mask use); no palpitations Gastrointestinal: + diarrhea/loose stools; no abdominal pain, no nausea, no vomiting, no constipation and no blood in stools Genitourinary: no dysuria and no hematuria Musculoskeletal: no back pain Integumentary: + lesions (on hadns and feet) Neurologic: no headache(s) Psychiatric: + anxiety Physical Exam Physical Exam: General: Alert, oriented. No acute distress, sitting up in bed Skin: excoriated lesions noted on arms and legs Psych: Disgruntled mood and affect Neuro: No gross deficits HEENT: NC/AT Chest: Nontender to palpation. CV: RRR, Normal s1, s2. No murmurs appreciated Resp: Breath sounds coarse bilaterally, no increased effort of breathing. Abdomen: Soft, nontender, nondistended. Extremities: + edema in lower extremities bilaterally. Results & Data Results & Data ([facility]) Vital Signs (Past 12 Hours) Vital Signs Temp Pulse Pulse Resp BP BP Pulse Ox 03/23/20 01:21 55 L 20 170/69 H 03/22/20 23:34 51 L 20 134/75 98 03/22/20 21:56 36.8 C 56 L 20 160/71 H 94 Supervising Physician Co-Signing Physician Notes Patient seen and examined, chart reviewed, case discussed with Dr. Conn and I agree with her assessment and plan as documented above. Briefly, patient is a 64yo C female presenting with epigastric chest discomfort that began after eating dinner. She has history of DM, HTN, HLP, PVD, CVA, CAD s/p STEMI in 06/2015 with LAD stent placement s/p restenosis with subsequent BMS placement. She reports compliance with her medications. Follows with Cardiology. Presently CP free. No additional complaints. She is frustrated about staying in the hospital and not being able to get sleep. On exam she is afebrile, bradycardic, HD stable, NAD Skin - no rash HEENT - NC/AT, PERRL, EOMI, Neck supple, No JVD Heart - +S1/S2, regular, bradycardic Lungs - coarse breath sounds diffusely Abd - +BS, soft, NT/ND Ext - warm, well perfused, no clubbing/cyanosis or edema, palpable pulses 2+ in UE/LE bilaterally Neuro - grossly nonfocal Labs and images reviewed. Troponin detectable but within normal range. No acute EKG changes of ischemia Assessment/Plan - 64yo C female with known CAD s/p stenting with restenosis, HTN/HLP/DM/PVD/CVA/Tobaco use presenting after episode of epigastric chest discomfort - troponin detectable. Patient HD stable, CP free at present. High risk given multiple medical comorbidities -Observation with telemetry -Trend troponin level - if increasing markedly, CP develops would consider heparin gtt -Cardiology consultation appreciated -2D echo ordered -Remainder of plan as above Resident Activity Tracking Resident Involvement: Resident Care Provided Care Provided: Adult Hospital Medicine (1) HTN (hypertension) Hypertension type: essential hypertension Qualified Code(s): I10 - Essential (primary) hypertension
[2020-03-23] MEDS ORDERED: ALPRAZolam 0.5 MG TABLET PO STA (03:32)
[2020-03-23] MEDS ORDERED: amLODIPine BESYLATE 5 MG TAB PO PRN (03:48)
[2020-03-23] MEDS ORDERED: DEXTROSE 50% 50 ML SYRINGE IV PRN (03:48)
[2020-03-23] MEDS ORDERED: NITROGLYCERIN 2% OINTMENT 30GM TUBE EXT PRN (03:48)
[2020-03-23] MEDS ORDERED: GLUCOSE 10 TABS/TUBE PO PRN (03:48)
[2020-03-23] MEDS ORDERED: CARBOHYDRATES FOR HYPOGLYCEMIA PO PRN (03:48)
[2020-03-23] MEDS ORDERED: GLUCAGON FOR INJ 1 MG VIAL SQ PRN (03:48)
[2020-03-23] MEDS ORDERED: GLUCOSE 40% GEL 15 GM TUBE PO PRN (03:48)
[2020-03-23] MEDS ORDERED: TRIAMCINOLONE ACET 0.1% CR 15 GM TUBE TOP PRN (03:48)
[2020-03-23] MEDS ORDERED: SODIUM CHLORIDE 0.9% 1000ML 1,000 ML IV SCH (03:48)
[2020-03-23] MEDS ORDERED: ALPRAZolam 0.5 MG TABLET PO PRN (03:48)
[2020-03-23] MEDS ORDERED: PHARMACY GLYCEMIC MGMT CONSULT PRN (03:58)
[2020-03-23] MEDS: INSULIN ASPART 100 UNITS/ML 3 ML PEN SC SCH ×2 (05:16→12:44)
--- NOTE | 2020-03-23 05:23 | Billing Data ---
Date of Service March 23, 2020 Coding Level of Care Code 72581 OBS Care - Level 3
[2020-03-23 06:21] LABS: Basophils # (auto) 0.03 K/uL (0-0.2); Basophils % (auto) 0.2 %; Eosinophils # (auto) 0.33 K/uL (0-0.5); Eosinophils % (auto) 2.3 %; Hematocrit (blood only) 40.4 % (37-47); Hemoglobin 13.1 g/dL (12.0-16.0); Immature Granulocytes # (auto) 0.03 K/uL (0.00-0.02); Immature Granulocytes % (auto) 0.2 %; Lymphocytes # (auto) 2.56 K/uL (1.2-3.4); Lymphocytes % (auto) 18.1 %; Mean Corpuscular Hemoglobin 29.8 pg (25-34); Mean Corpuscular Hgb Conc 32.4 g/dL (32-36); Mean Corpuscular Volume 91.8 fL (80-100); Monocytes # (auto) 0.76 K/uL (0.11-0.59); Monocytes % (auto) 5.4 %; Neutrophils # (auto) 10.41 K/uL (1.4-6.5); Neutrophils % (auto) 73.8 %; Platelet Count 212 K/uL (130-400); RDW Coefficient of Variation 14.7 % (11.5-14.5); RDW Standard Deviation 49.5 fL (36.4-46.3); White Blood Count 14.12 K/uL (4.8-10.8)
[2020-03-23 06:44] LABS: BUN Creatinine Ratio 12.7 (10-20); Calcium 9.3 mg/dl (8.5-10.1); Creatinine Clr Calc Pharmacy 31.6 ml/min; Est GFR (African American) 38.5; Est GFR (Non-African American) 33.2; Magnesium 2.3 mg/dl (1.8-2.4)
[2020-03-23 06:45] LABS: Phosphorus 3.3 mg/dl (2.5-4.9)
--- NOTE | 2020-03-23 07:09 | XRay Report ---
SINGLE VIEW CHEST CLINICAL HISTORY: Atypical chest pain. FINDINGS: An AP, portable, upright chest radiograph is compared to study dated 01/06/2017. The examinat ion is degraded by portable technique and patient rotation. The cardiomediastinal silhouette is unr emarkable noting atherosclerotic calcification of the thoracic aorta. Chronic interstitial thickening is similar to previous. Mild atelectasis is seen at the left lung base. The lungs and pleural spaces are otherwise clear. No pneumothorax is seen. The skeletal structures are osteopenic. The bony thora x is grossly intact. IMPRESSION: No active disease in the chest. ACT 112: Negative or not required by law. Electronically signed by: Dipak Scott M.D. 03/23/2020 7:08 AM
[2020-03-23 08:32] LABS: Estimated Average Glucose 131 mg/dl; Hemoglobin A1C 6.2 % (4.5-5.6)
[2020-03-23] MEDS ORDERED: PRASugrel TAB 10 MG TAB PO SCH (09:00)
[2020-03-23] MEDS ORDERED: METOPROLOL TARTRATE 50 MG TAB PO SCH (09:00)
[2020-03-23] MEDS ORDERED: LOSARTAN POTASSIUM 50 MG TAB PO SCH (09:00)
[2020-03-23] MEDS ORDERED: ASPIRIN 81 MG ECTAB PO SCH (09:00)
[2020-03-23] MEDS ORDERED: INSULIN GLARGINE SOLOSTAR 100 UNITS/ML 3 ML PEN SC SCH (09:00)
[2020-03-23] MEDS ORDERED: CHOLECALCIFEROL 1,000 UNITS 25 MCG TAB PO SCH (09:00)
--- NOTE | 2020-03-23 10:16 | XCELERA ---
[id number] \\[id number]_[id number]
--- NOTE | 2020-03-23 10:23 | Pharmacy Report ---
Glycemic Control Consultation - Date of Service March 23, 2020 - Scope Scope: Glycemic Pharmacist consulted for glycemic control and to write orders per [facility] inpatient glycemic control protocol. - Objective Weight: 70.9 kg Accuchecks BSG (last 24hrs): 03/22/20 03/23/20 03/23/20 22:40 05:10 05:24 Glucose 119 H 95 POC Glucose 103 H 03/23/20 07:37 Glucose POC Glucose 100 H Laboratory Data (last 24hrs): 03/22/20 03/23/20 22:40 05:24 Potassium 4.2 4.0 Carbon Dioxide 25 25 Anion Gap 6.0 6.0 Creatinine 1.86 H 1.62 H Est Cr Clr Drug Dosing 28.1 31.6 HbA1c: Hemoglobin A1c 6.2 % (4.5-5.6) H 03/23/20 05:25 - Recent Pertinent Medications Outpatient Anti-diabetic Regimen: * Glimepiride 1 mg PO daily prn for elevated blood sugars * A1c = 6.2% (03/23/2020) Risk Factors for Insulin Resistance: * None - Assessment & Plan Assessment & Plan: ASSESSMENT: * 64 yo F admitted secondary to chest pain for ACS rule out. Cardiology consult is pending. Pharmacy was consulted early this morning for inpatient glycemic management. * Patient was prescribed prn Glimepiride as an outpatient in May 2019 when her A1c was 6.6%. Repeat A1c today was well controlled at 6.2%. Since May, patient has filled 90 day prescription twice showing limited use. It has not been refilled since July 2019. * Admission BSG was 119 mg/dL. This AM's fasting BSG was 100 mg/dL. Patient is NPO until cardiology sees her. Will start just bolus insulin for correctional/prandial needs based on weight/stress of 1-2. Unlikely that patient will require basal insulin unless stressors significantly change. PLAN FOR INPATIENT GLYCEMIC CONTROL: * Holding outpatient oral diabetes medications * Basal insulin - None * Bolus insulin * NovoLog per scale ACHS or Q6hrs while NPO * Goal Range: Low 110 mg/dL - High 140 mg/dL * Correction Factor: 35 mg/dL/unit * Nutritional / Prandial insulin per carb ratio of 1 unit per 12 grams CHO consumed DISCHARGE RECOMMENDATIONS: * HbA1c this morning was 6.2% which is at goal and improved from 6.6% in May 2019. Patient takes Glimepiride at home as needed for high BSGs. Given patient has CKD Stage IIIb, I would recommend changing Glimepiride to Glipizide prn, as Glipizide is the preferred sulfonylurea in renal impairment because it does not have active metabolites. Would recommend starting with low dose of 2.5 mg PO BIDM prn for BSG > 150 mg/dL. Patient should self-monitor for hypoglycemia given SFU mechanism of action and renal impairment. Certainly, it is reasonable to defer this decision to outpatient provider as well. * Please note that the plan above was derived based on current level of insulin resistance and hospital stress. These recommendations are appropriate for inpatient admission only. Plan of care upon discharge will need to be reassessed to avoid potential outpatient hypo/hyperglycemia. Thank you.
[2020-03-23] MEDS ORDERED: ATROPINE SULFATE 0.1 MG/ML 10ML SYR IV ONE (11:31)
[2020-03-23] MEDS ORDERED: METOPROLOL TARTRATE 1 MG/ML VIAL IV ONE (11:31)
[2020-03-23] MEDS ORDERED: DOBUTamine HCL 12.5 MG/ML 20 ML VIAL IV ONE (11:32)
--- NOTE | 2020-03-23 11:45 | Cardiology Consultation ---
Date of Consultation March 23, 2020 Assessment & Plan (1) Chest pain: -total duration of her discomfort was approximately 1 hour. -mild elevation in troponin noted. -suspect a supply demand mismatch realizing her hypertension and LVH. -will proceed with a dobutamine stress echocardiogram. (2) Coronary artery disease: -significant history as described. -continue medical management. (3) HTN (hypertension): -adequate control currently. -does have mild LVH on her current echocardiogram. (4) Hyperlipidemia: -refuses statins. History of Present Illness Attending Physician: Alexandra Merchant MD History of Present Illness Mrs. Thomas is a 64 year old female admitted earlier today with a chest pain syndrome. This consultation was ordered to assist in management. Of note, patient is well known to me from the outpatient setting. The patient was in her usual state of health until approximately 8:00 p.m. last evening. She had finished eating her dinner at approximately 4:30 p.m. and took a nap. She awoke at 8:00 pm feeling substernal chest discomfort. There was no radiation of the discomfort. She did not experience associated shortness of breath, nausea, vomiting, diaphoresis, or palpitations. Her daughter became quite concerned and brought her to the emergency room. She arrived here at approximately 9:00 p.m. and felt that her discomfort had resolved. The patient leads a very sedentary lifestyle. However, she has not experienced any recent exertional angina pectoris or limiting dyspnea. She further denies syncope, presyncope, PND, orthopnea, lower extremity edema, and claudication. The patient's cardiac history began in 1992 when she presented with a posterior HI and had an angioplasty performed in an unknown vessel. The patient did well until September 2008 when she presented with an unstable syndrome and had 2 stents placed within the right coronary artery, and 1 stent placed in the proximal LAD. She did well until June 2015 when she suffered an in stent restenosis. She had a bare metal stent placed in the proximal LAD. She has done well since that time. The patient also carries a history of significant peripheral vascular disease. At the time of an angiogram in 2014, the patient noted a 100% stenosis in the right SFA, and a 70% stenosis in the left SFA. She does experience stable claudication. Currently, patient is resting comfortably in bed without complaints. Past medical and surgical history 1. Coronary artery disease-see above 2. RCA stent x2-September 2008 3. Proximal LAD stent-September 2008 4. Instent restenoses-June 2015 5. Proximal LAD BMS-June 2015 6. Hypertension 7. Mild LVH 8. Hypercholesterolemia-refuses statins 9. Diastolic dysfunction 10. Mild mitral regurgitation 11. Peripheral vascular disease-see above 12. Diabetes mellitus 13. Chronic renal failure 14. COPD 15. GERD 16. Vocal cord polyps 17. Anxiety 18. Venous insufficiency Social history , lives with her daughter. Smokes 1-2 packs of cigarettes daily No alcohol Family history Father experienced early coronary artery disease Review of systems A 10 review systems was undertaken and negative except for that described above. Allergies Allergy/AdvReac Type Severity Reaction Status Date / Time citalopram [From Celexa] Allergy Unknown Verified 03/22/20 22:55 lisinopril [From Prinivil] Allergy Unknown Verified 03/22/20 22:55 moxifloxacin [From Avelox] Allergy Unknown Verified 03/22/20 22:55 nitrofurantoin Allergy Unknown Verified 03/22/20 22:55 [From Macrobid] sulfamethoxazole Allergy Unknown Verified 03/22/20 22:55 [From Bactrim] trimethoprim [From Bactrim] Allergy Unknown Verified 03/22/20 22:55 valsartan [From Diovan] Allergy Unknown Verified 03/22/20 22:55 Home Medications Medication Instructions Recorded Confirmed Type aspirin 81 mg tablet 81 mg PO DAILY #30 tab 12/10/18 03/22/20 History nitroglycerin 0.4 mg sublingual 0.4 mg SL Q5M PRN tab 01/28/19 03/22/20 History tablet blood sugar diagnostic #100 ea 07/24/19 01/13/20 Rx glimepiride 2 mg tablet 1 mg PO DAILY PRN #45 tab 07/24/19 03/22/20 Rx triamcinolone acetonide 0.1 % 1 appln TOP BID PRN #80 gm 09/25/19 03/22/20 Rx topical cream amlodipine 5 mg tablet 5 mg PO DAILY PRN #90 tab 12/02/19 03/22/20 Rx losartan 50 mg tablet 50 mg PO BID #180 tab 12/02/19 03/22/20 Rx metoprolol tartrate 50 mg tablet 50 mg PO BID #180 tab 12/02/19 03/22/20 Rx prasugrel 10 mg tablet 10 mg PO DAILY #90 tab 12/02/19 03/22/20 Rx alprazolam 0.5 mg tablet 0.5 mg PO TID PRN #90 tab 03/01/20 03/22/20 Rx cholecalciferol (vitamin D3) 50 mcg PO DAILY 03/22/20 03/22/20 History Patient History Medical History Anxiety Chronic kidney disease Coronary artery disease CVA (cerebral vascular accident) GERD (gastroesophageal reflux disease) Heart failure with preserved ejection fraction HTN (hypertension) Hyperlipidemia refuses statins Osteoarthritis Osteopenia Peripheral vascular disease Type 2 diabetes mellitus Surgical History History of coronary artery stent placement History of laryngoscopy Total knee replacement status Family History Sister Breast cancer Mother Myocardial infarction Father Myocardial infarction Diabetes Denies family history of Colon cancer Ovarian cancer Prostate cancer Colorectal cancer Social History Smoking Status: Never smoker Hx Alcohol Use: No Hx Substance Use: No Preferred Language: Welsh Communication Ability: Effective Visual Impairment: No Limitations Hearing Ability: Normal Development Administrator Required: Yes Beliefs That Will Affect Care: None marital status: / Current Living Situation: Family current occupational status: retired Feels Safe at Home: Yes Safety Concerns: Feels Safe At This Time Dental Care, Regularly: Yes Physical Activity Frequency: Does not Exercise Seatbelt Use: always Sunscreen Use: Yes Assistive Devices: Cane Physical Exam Physical Exam: In general this is a thin white female seated in a chair without complaints. Strong smell of tobacco is noted. HEENT exam is negative. Neck is supple with full carotid upstrokes. No obvious bruits. No jugular venous distension. There is no thyromegaly. Cardiovascular exam reveals a regular rhythm with distant heart sounds. S1-S2 are normal. No obvious murmurs. Lungs are clear without rales, rhonchi or wheezes. Breath sounds are distant. Abdomen is soft without bruits. Extremities reveal intact radial artery pulses bilaterally. There is no peripheral edema. Posterior tibial pulses are nonpalpable. Results & Data ([facility]) Vital Signs (Past 12 Hours) Vital Signs Temp Pulse Pulse Resp BP BP Pulse Ox 03/23/20 07:58 36.7 C 60 18 134/68 94 03/23/20 07:00 49 L 03/23/20 04:49 36.6 C 59 L 16 146/58 H 96 03/23/20 03:00 62 19 156/80 H 98 03/23/20 01:21 55 L 20 170/69 H 03/22/20 23:34 51 L 20 134/75 98 Laboratory Results CBC notes hemoglobin 13.1, hematocrit 40.4, white count 14.1, and platelet count of 138747. Electrolytes note a sodium of 142, potassium 4.0, chloride 111, bicarb 25, BUN 21, creatinine 1.62, glucose of 95. Initial troponin was 0.018 with follow-up values of 0.107 and 0.086. Magnesium level is normal 2.3. Diagnostic Findings EKG notes sinus bradycardia without abnormalities. engine monitor is benign. Chest x-ray shows no acute disease. PG Care Time/CCT Total # of Minutes Spent Total Time Spent with Patient: Total time spent is greater than 50% in coordination of care (as documented) at patient's floor/unit and/or counseling patient: Coding Level of Care Code 71106 Office/OBS Consult Lvl 4 Diagnoses Chest pain R07.9 Coronary artery disease I25.10 HTN (hypertension) I10 Hypertension type: essential hypertension Hyperlipidemia E78.5 (1) HTN (hypertension) Hypertension type: essential hypertension Qualified Code(s): I10 - Essential (primary) hypertension
[2020-03-23] MEDS ORDERED: PERFLUTREN LIPID MICROSPHERE (DEFINITY) IV ONE (12:24)
--- NOTE | 2020-03-23 14:08 | XCELERA ---
[id number] \\[id number]_[id number]
--- NOTE | 2020-03-23 14:24 | Discharge Summary ---
Date of Service March 23, 2020 Admission HPI Per Admitting Provider Pt is a 64yo with a PMHx significant for CAD s/p stent placement in LAD, HTN, HLD, DMII, HFpEF, CKD, Hx of CVA and anxiety who was admitted for ACS rule-out. Pt was uncooperative at times during the history but stated that she started having chest pain after dinner. Stated it was located in the epigastrium with no radiation. There was no associated N/V, diaphoresis, palpitations. Denies any trauma to the area. States she does not smoke currently but refused to state when she quit or for how long she smoked. Also refused to give her code status, stating "they never asked me this before." Admission Exam Per Admitting Provider General: Alert, oriented. No acute distress, sitting up in bed Skin: excoriated lesions noted on arms and legs Psych: Disgruntled mood and affect Neuro: No gross deficits HEENT: NC/AT Chest: Nontender to palpation. CV: RRR, Normal s1, s2. No murmurs appreciated Resp: Breath sounds coarse bilaterally, no increased effort of breathing. Abdomen: Soft, nontender, nondistended. Extremities: + edema in lower extremities bilaterally. Principal Diagnosis Chest pain Discharge Exam Constitutional WD/WN, vitals as above no acute distress Cardiovascular RRR, no murmur, no edema Heart Sounds: normal S1 and normal S2 Gastrointestinal (Abdomen) normal bowel sounds, soft, nontender, no hepatosplenomegaly Skin no rashes, warm and dry Psychiatric Orientation: alert and oriented x 3 Affect: + angry affect Mood: + angry mood Discharge Data Allergies Allergy/AdvReac Type Severity Reaction Status Date / Time citalopram [From Celexa] Allergy Unknown Verified 03/22/20 22:55 lisinopril [From Prinivil] Allergy Unknown Verified 03/22/20 22:55 moxifloxacin [From Avelox] Allergy Unknown Verified 03/22/20 22:55 nitrofurantoin Allergy Unknown Verified 03/22/20 22:55 [From Macrobid] sulfamethoxazole Allergy Unknown Verified 03/22/20 22:55 [From Bactrim] trimethoprim [From Bactrim] Allergy Unknown Verified 03/22/20 22:55 valsartan [From Diovan] Allergy Unknown Verified 03/22/20 22:55 Consultations 03/23/20 00:25 ED Decision to Admit Stat 03/23/20 03:48 Consult Cardiology Routine Hospital Course (1) Anxiety: Pt is a 64yo with a PMHx significant for CAD s/p stent placement in LAD, HTN, HLD, DMII, HFpEF, CKD, Hx of CVA and anxiety who was admitted for ACS rule- out. As below she was worked up for ACS with negative studies. Given patient's description of event, possible this may have been related to acid reflux. Chest pain - ruled out for ACS - pt stated her chest pain started "after supper" - Hx of STEMI in 2016, with LAD stent placement - Risk factors including DMII, Hx of tobacco abuse, HTN, HLD - EKG with sinus bradycardia, HR of 59, qtc of 413 - trop of 0.018 --> 0.107 --> 0.086 - Echo: LV normal in size, mild concentric LVH, EF 55-60%, no wall motion abnormalities - Cardiology consulted: -total duration of her discomfort was approximately 1 hour. -mild elevation in troponin noted. -suspect a supply demand mismatch realizing her hypertension and LVH -will proceed with a dobutamine stress echocardiogram. - Dobutamine stress echo: Negative for myocardial ischemia at 83% of maximum predicted HR, no chest pain, no EKG changes CAD -Hx of STEMI in 2015, with LAD stent placement, after stenoses now has bare metal stent -continued home metoprolol tartrate 50mg BID -continued home prasugrel 10mg daily, aspirin daily HTN -continued home amlodipine 5mg PRN, losartan 50mg BID and metoprolol tartrate 50mg BID HLD - refuses a statin CKD - Cr of 1.86 on admission - Baseline approximately 1.9 - given gentle fluids Hx of CVA - continue prasugrel as above DMII -held home PRN glimepride 2mg -ISS while hospitalized Anxiety -continued home ativan 0.5mg TID prn FEN/GI: Heart healthy, DM2 CODE STATUS: pt refuses to state. assumed full code Dispo: Home (2) GERD (gastroesophageal reflux disease): (3) Type 2 diabetes mellitus: (4) CVA (cerebral vascular accident): (5) HTN (hypertension): (6) Hyperlipidemia: (7) Peripheral vascular disease: (8) Chronic kidney disease: (9) Heart failure with preserved ejection fraction: (10) Coronary artery disease: Total Time Total Time Spent Total Time Spent (In Minutes): see Attending attestation Discharge Plan Discharge Items Patient Disposition: Home - Self-Care Reason For Visit: ACS Discharge Diagnosis: Chest Pain Condition on Discharge: Good Activity: Resume your previous activity Non-emergency contact: Primary Care Provider Call non-emergency contact if: you have any medication questions, your symptoms worsen and your pain is unusual for you Follow-up/Referrals: Carrie Rincon MD [Primary Care Provider] - Diet: Carb Consistent or DM2 and Heart Healthy Addtl Attending Provider Instructions: You were admitted to the hospital for chest pain. A workup was performed to investigate your heart as a cause. You had an electrocardiogram (EKG) performed that did not show any signs of a current heart attack. You had a echocardiogram of your heart that did not show any significant changes as compared to your last echocardiogram on 01/06/2017. You also had lab work that did not show any significant signs of heart damage. You also had a stress echocardiogram stress test performed which did not show any significant abnormalities. Also, your electrolyte values were all normal values. There was no evidence from lab work and studies performed that you're pain was caused by a heart attack. Your heart doctor saw you in the hospital and recommended continued medical management with your current medications. We also recommend tobacco cessation. Continuing to smoke will accelerate plaque buildup in your heart leading to higher risk of heart attack and . Also, we recommend that you reconsider a medication to lower your cholesterol to protect your heart from plaque build up, called a statin medication. Please consider this and discuss with your primary care physician or certified athletic trainer/heart doctor at next appointment. If you experience chest pain, shortness of breath, sensation of passing out, or symptoms that are concerning to you, please return to [facility] ED for evaluation or seek other emergent medical evaluation/call 911/go to nearest Emergency Department. Pending Studies at Discharge: No Stand-Alone Forms: [employer], Smoking Cessation Medications and DC Order Prescriptions: Continued (DME) OneTouch Ultra Blue Test Strip Strip See Rx Instructions .ROUTE .MEDSUPPLY Qty: 100 RF: 4 glimepiride 2 mg tablet 1 mg PO DAILY PRN (Reason: blood sugar) Qty: 45 RF: 3 triamcinolone acetonide 0.1 % cream 1 appln TOP BID PRN (Reason: itching) Qty: 80 RF: 1 alprazolam 0.5 mg tablet 0.5 mg PO TID PRN (Reason: anxiety) Qty: 90 RF: 0 aspirin 81 mg tablet 81 mg PO DAILY Qty: 30 RF: 0 nitroglycerin 0.4 mg tablet, sublingual 0.4 mg SL Q5M PRN (Reason: chest pain) RF: 0 prasugrel 10 mg tablet 10 mg PO DAILY Qty: 90 RF: 3 metoprolol tartrate 50 mg tablet 50 mg PO BID Qty: 180 RF: 3 losartan 50 mg tablet 50 mg PO BID Qty: 180 RF: 3 amlodipine 5 mg tablet 5 mg PO DAILY PRN (Reason: blood pressure) Qty: 90 RF: 3 cholecalciferol (vitamin D3) 25 mcg (1,000 unit) capsule 50 mcg PO DAILY RF: 0 Discharge Orders: Discharge Order (Routine); Ordered 03/23/20 Ordered By: Rory Aguayo/Other Patient Handouts: Managing Type 2 Diabetes, First Aid: Heart Attacks, Heart Disease Women Tips for Changes, Managing Diabetes: The A1C Test, Eating Heart-Healthy Foods Admission Data Admit Date/Time: 03/23/20 02:54 Attending Provider: Alexandra Merchant Admit Provider: Serene Conn Primary Care Provider: Carrie Rincon Other Providers: Leisa Valladares Jeffrey G. Supervising Physician Co-Signing Physician Notes Resident Physician Supervision Note: I independently interviewed and examined the patient and verified the ken history and physical, reviewed labs and image studies, discussed the case with the resident Dr. Berrios and agree with the findings and care plan. Resident Activity Tracking Resident Involvement: Resident Care Provided Care Provided: Adult Hospital Medicine
--- NOTE | 2020-03-23 16:51 | Electrocardiogram Report ---
Test Reason : Blood Pressure : / mmHG Vent. Rate : 059 BPM Atrial Rate : 059 BPM P-R Int : 128 ms QRS Dur : 074 ms QT Int : 418 ms P-R-T Axes : -09 010 054 degrees QTc Int : 413 ms Sinus bradycardia Otherwise normal ECG When compared with ECG of 08-JAN-2017 06:49, No significant change was found Confirmed by Juan José Pedraza ([id number]) on 03/23/2020 4:51:13 PM Referred By: REFERRED SELF Confirmed By:Juan José Pedraza
== END 2020-03-23 16:20 | disposition home or self-care (01) ==
LOC: 2N 21:38 → ED 21:38 → SUATTDRO 03-23 02:54 → 2N 03-23 03:30